=== PATIENT | female | born 1995 | race Caucasian/White ===

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

== ENCOUNTER 2017-01-29 13:45 | Emergency (ER) | payer MEDICAID ==
--- NOTE | 2017-01-29 14:08 | ERPHSYRPT ---
- History of Present Illness Time Seen by Provider: 01/29/17 14:02 Historian: patient Exam Limitations: no limitations Patient Subjective Stated Complaint: "I have been getting this pain in my upper abdomen, it is a. cramping pain and it happens when I bend over or lift something. It takes my breath away." Triage Nursing Assessment: pt alert and oriented X 3, skin pwd pt ambulates without difficulty. able to speak in full sentences. Physician History: The patient is a 21-year-old female complaining of mild abdominal pain just above her belly button when she lifts something. This began yesterday. It was particularly pronounced when she lifted a bucket of ice above her head while at work at [employer] today. She almost dropped a bucket because of the pain. Her medical laboratory manager sent her home. Her last menstrual period was one month ago. Her past medical history is unremarkable. Timing/Duration: yesterday Activities at Onset: activity Quality: sharpness Abdominal Pain Onset Location: periumbilical Pain Radiation: no radiation Severity of Pain-Max: moderate Severity of Pain-Current: mild Modifying Factors: Improves With: movement Associated Symptoms: denies symptoms Previous symptoms: no prior history Allergies/Adverse Reactions: clarithromycin [From Biaxin] Allergy (Verified 01/29/17 13:57) Rash Home Medications: No Home Meds 1 ea UD 11/12/16 [History] Hx Tetanus, Diphtheria Vaccination/Date Given: Yes Hx Influenza Vaccination/Date Given: Yes Hx Pneumococcal Vaccination/Date Given: No Immunizations Up to Date: Yes - Review of Systems Constitutional: No Fever, No Chills Eyes: No Symptoms Ears, Nose, & Throat: No Symptoms Respiratory: No Cough, No Dyspnea Cardiac: No Chest Pain, No Edema, No Syncope Abdominal/Gastrointestinal: Abdominal Pain Genitourinary Symptoms: No Dysuria Musculoskeletal: No Back Pain, No Neck Pain Skin: No Rash Neurological: No Dizziness, No Focal Weakness, No Sensory Changes Psychological: No Symptoms Endocrine: No Symptoms Hematologic/Lymphatic: No Symptoms Immunological/Allergic: No Symptoms All Other Systems: Reviewed and Negative - Past Medical History Pertinent Past Medical History: No Neurological History: No Pertinent History ENT History: No Pertinent History Cardiac History: No Pertinent History Respiratory History: No Pertinent History Endocrine Medical History: No Pertinent History Musculoskeletal History: Fractures GI Medical History: No Pertinent History History: No Pertinent History Psycho-Social History: No Pertinent History Female Reproductive Disorders: Cervical Cancer Other Medical History: pre cancer cells in cervix - Past Surgical History Past Surgical History: Yes Gastrointestinal: Hernia Repair Musculoskeletal: Orthopedic Surgery Female Surgical History: Other Other Surgical History: cerclage x2, conization - Social History Smoking Status: Never smoker Exposure to second hand smoke: No Drug Use: none Patient Lives Alone: Yes - Female History Hx Last Menstrual Period: 12/30/2016 Hx Now: No - Nursing Vital Signs Nursing Vital Signs: Initial Vital Signs Temperature 98.7 F 01/29/17 13:50 Pulse Rate 92 H 01/29/17 13:50 Respiratory Rate 18 01/29/17 13:50 Blood Pressure 130/52 01/29/17 13:50 O2 Sat by Pulse Oximetry 94 L 01/29/17 13:50 Pain Scale Pain Intensity 4 - Physical Exam General Appearance: no apparent distress, alert Eye Exam: PERRL/EOMI, eyes nml inspection Ears, Nose, Throat Exam: normal ENT inspection, pharynx normal, moist mucous membranes Neck Exam: normal inspection, non-tender, supple, full range of motion Respiratory Exam: normal breath sounds, lungs clear, No respiratory distress Cardiovascular Exam: regular rate/rhythm, normal heart sounds Gastrointestinal/Abdomen Exam: tenderness (2 cm superior to umbilicus without obvious intestinal hernia), other (obese) Pelvic Exam: not done Rectal Exam: not done Back Exam: normal inspection, normal range of motion, No CVA tenderness, No vertebral tenderness Extremity Exam: normal inspection, normal range of motion, pelvis stable Neurologic Exam: alert, oriented x 3, cooperative, normal mood/affect, nml cerebellar function, sensation nml, No motor deficits Skin Exam: normal color, warm, dry SpO2 Interpretation: normal SpO2: 94 Oxygen Delivery: Room Air - Radiology Exams Abdomen X-ray Interpretation: Teleradiologist Report, Negative (per DR Rubin) Ordered Tests: Active Orders 24 hr Category Date Time Status OBSTR/ACUTE ABDOMEN SERIES Stat Exams 01/29/17 14:07 Completed - Progress Progress: unchanged Counseled pt/family regarding: diagnosis, rad results - Departure Time of Disposition: 15:25 Departure Disposition: Home Clinical Impression: Abdominal pain Condition: Stable Critical Care Time: No Additional Instructions: You have pain in the muscular wall of your abdomen. This could be an indication that you are having a slight tear in the muscles. Your x-ray of the abdomen was normal. Take Tylenol and ibuprofen as needed. Follow-up as needed.
--- NOTE | 2017-01-29 15:10 | XRAY ---
Exam: Acute obstructive series from 01/29/2017. Comparison: Two-view chest from 07/10/2016 and one view pelvis from 06/19/2016. Indication: Abdominal pain, primarily in umbilical area, no history of prior surgery. Findings: An upright PA chest film was obtained. In addition, 2 supine images and an upright image of the abdomen were obtained. The heart size and contour are normal. The radha and mediastinal structures appear intact. Inflation of the chest is a bit less than average. Prior focal airspace infiltrate at the lateral left lung base has resolved. Also, I believe there was some minimal patchy infiltrate or atelectasis at the medial right lung base on the exam of 07/10/2016 which is no longer seen as well. Currently, no air space infiltrates, vascular congestion, pneumothorax, or pleural fluid is seen. The bowel gas pattern appears nonspecific. A small amount of stool and aerated bowel overlie the ascending colon and hepatic flexure. Minimal aerated bowel is seen within the splenic flexure. There appears to be abundant fluid/secretions filling the stomach lumen with an air-fluid level coursing across the upper aspect of the gastric fundus. No free intraperitoneal air is seen. Incidentally, there is a probable calcified granuloma at the medial left lung base behind the heart on the upright image of the abdomen. No suspicious abdominal calcifications are seen. The bones appear unremarkable. 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 Impression: 1. Inspiratory effort is a bit less than average. No acute cardiopulmonary disease is seen. Prior mild patchy airspace disease at each lung base, left greater than right, on 07/10/2016 has resolved. 2. Nonspecific bowel gas pattern suggesting neither bowel obstruction or significant ileus. I do see abundant fluid/secretions within the gastric lumen. 3. No free intraperineal air is seen.
[2017-01-29 15:16] VITALS: BP 135/70; PULSE 88
[2017-01-29 15:28] VITALS: O2SAT 94
== END 2017-01-29 15:34 | disposition home or self-care (01) ==
LOC: ED 13:45
DX: R10.10 Upper abdominal pain, unspecified (principal)
CPT/HCPCS: 74022; 99281; 99283

== ENCOUNTER 2017-03-09 12:40 | Emergency (ER) | payer OTHER ==
[2017-03-09] MEDS ORDERED: Pepcid 20 MG PO ONE (13:21)
[2017-03-09] MEDS ORDERED: Protonix 40MG Tablet PO ONE (13:21)
[2017-03-09] MEDS ORDERED: Pepcid 20 MG ONE (13:28)
[2017-03-09] MEDS ORDERED: Protonix 40MG Tablet ONE (13:28)
--- NOTE | 2017-03-09 13:36 | ERPHSYRPT ---
- History of Present Illness Time Seen by Provider: 03/09/17 13:31 Historian: patient, family Exam Limitations: no limitations Physician History: 21-year-old female came to the emergency room with complaining of feels like fluttering of the heart, epigastric abdominal pain and right upper quadrant abdominal pain since yesterday. Patient states that all her symptoms started after she has been taking Adipex for weight loss. Timing/Duration: today Activities at Onset: none Quality: tightness Location: substernal, epigastric, abdomen Chest Pain Radiation: no radiation Severity of Pain-Max: mild Severity of Pain-Current: mild Modifying Factors: Improves With: nothing Associated Symptoms: palpitations, abdominal pain Prior Chest Pain/Cardiac Workup: no prior chest pain Aspirin Treatment Today: no aspirin today Allergies/Adverse Reactions: clarithromycin [From Biaxin] Allergy (Verified 01/29/17 13:57) Rash Home Medications: No Home Meds [No Home Meds] 1 ea [facility] 11/12/16 [History] Hx Tetanus, Diphtheria Vaccination/Date Given: Yes Hx Influenza Vaccination/Date Given: Yes Hx Pneumococcal Vaccination/Date Given: No - Review of Systems Constitutional: No Fever, No Chills Eyes: No Symptoms Ears, Nose, & Throat: No Symptoms Respiratory: No Cough, No Dyspnea Cardiac: Chest Pain, Palpitations, No Edema, No Syncope Abdominal/Gastrointestinal: Abdominal Pain, No Nausea, No Vomiting, No Diarrhea Genitourinary Symptoms: No Dysuria Musculoskeletal: No Back Pain, No Neck Pain Skin: No Rash Neurological: No Dizziness, No Focal Weakness, No Sensory Changes Psychological: No Symptoms Endocrine: No Symptoms All Other Systems: Reviewed and Negative - Past Medical History Pertinent Past Medical History: No Neurological History: No Pertinent History ENT History: No Pertinent History Cardiac History: No Pertinent History Respiratory History: No Pertinent History Endocrine Medical History: No Pertinent History Musculoskeletal History: Fractures GI Medical History: No Pertinent History History: No Pertinent History Psycho-Social History: No Pertinent History Female Reproductive Disorders: Cervical Cancer Other Medical History: cervical ca 4 years ago - Past Surgical History Past Surgical History: Yes Gastrointestinal: Hernia Repair Musculoskeletal: Orthopedic Surgery Female Surgical History: Other Other Surgical History: cervical ca - Social History Smoking Status: Never smoker Exposure to second hand smoke: No Drug Use: none Patient Lives Alone: Yes - Female History Hx Now: No - Nursing Vital Signs Nursing Vital Signs: Initial Vital Signs Temperature 98.6 F 03/09/17 12:44 Pulse Rate 86 03/09/17 12:44 Respiratory Rate 12 03/09/17 12:44 Blood Pressure 130/70 03/09/17 12:44 O2 Sat by Pulse Oximetry 98 03/09/17 12:44 Pain Scale Pain Intensity 6 - Physical Exam General Appearance: no apparent distress, alert Eye Exam: PERRL/EOMI, eyes nml inspection Ears, Nose, Throat Exam: normal ENT inspection, moist mucous membranes Neck Exam: normal inspection, non-tender, supple, full range of motion Respiratory Exam: normal breath sounds, lungs clear, No respiratory distress Cardiovascular Exam: regular rate/rhythm, normal heart sounds Gastrointestinal/Abdomen Exam: soft, No tenderness, No mass Back Exam: normal inspection, No CVA tenderness, No vertebral tenderness Extremity Exam: normal inspection, normal range of motion Neurologic Exam: alert, oriented x 3, cooperative, normal mood/affect, sensation nml, No motor deficits Skin Exam: normal color, warm, dry SpO2: 98 Oxygen Delivery: Room Air - Course Nursing assessment & vital signs reviewed: Yes EKG Interpreted by Me: Sinus Rhythm Ordered Tests: Medication Summary Discontinued Medications Generic Name Dose Route Start Last Admin Trade Name Freq PRN Reason Stop Dose Admin Famotidine 40 mg 03/09/17 13:21 03/09/17 13:29 Pepcid 20 Mg PO 03/09/17 13:22 40 mg STAT ONE Administration Pantoprazole Sodium 40 mg 03/09/17 13:21 03/09/17 13:30 Protonix 40mg Tablet PO 03/09/17 13:22 40 mg STAT ONE Administration - Progress Progress: improved Air Movement: good Blood Culture(s) Obtained: No Antibiotics given: No Counseled pt/family regarding: diagnosis, need for follow-up - Departure Time of Disposition: 13:36 Departure Disposition: Home Clinical Impression: Chest pain of uncertain etiology, Right upper quadrant abdominal pain of unknown etiology Condition: Stable Critical Care Time: No Referrals: CHUCK ABEL MD [Primary Care Provider] - Instructions: Atypical Chest Pain Additional Instructions: Please stop taking Adipex. Drink more water instead of caffeine-related products. Stay away from fatty foods. Please follow up with your primary care physician and consider getting gallbladder ultrasound. If your symptoms get worse, come back to the emergency room otherwise follow-up with your primary care physician in next 1-2 days. Prescriptions: Famotidine 20 mg [Pepcid 20 MG] 20 mg PO BID #30 tablet PANTOPRAZOLE 40 mg Tablet [Protonix 40MG Tablet] 40 mg PO DAILY #30 tab
[2017-03-09 13:49] VITALS: BP 109/58; PULSE 70; O2SAT 100
== END 2017-03-09 13:49 | disposition home or self-care (01) ==
LOC: ED 12:40
DX: R07.9 Chest pain, unspecified (principal); R10.11 Right upper quadrant pain
CPT/HCPCS: 93005; 99284; A9270-GY

== ENCOUNTER 2017-03-16 00:26 | Emergency (ER) | payer OTHER ==
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
[2017-03-16 01:16] LABS: BASOPHIL % 0.1 % (0.0-0.4); Eosinophil % 2.1 % (0.00-5.0); Granulocytes % 69.1 % (36.0-66.0); Lymphocytes % 23.2 % (24.0-44.0); Mean Cell Volume 79.7 fl (78-100); Mean Platelet Volume 10.2 fl (6-9.5); Monocytes % 5.5 % (0.0-12.0); Platelet Count 278 K/mm3 (150-450); Red Blood Count 4.49 M/mm3 (4.1-5.4); Red Cell Distribution Width 15.4 % (11.5-14.0)
[2017-03-16 01:18] LABS: Mean Corpuscular Hemoglobin 25.1 pg (26-32)
[2017-03-16 01:36] LABS: Bacteria MODERATE /HPF (NEGATIVE); Bilirubin NEGATIVE (NEGATIVE); Blood NEGATIVE Ery/ul (0-5); COMPLETE URINE MICROSCOPIC? YES; Collection Type VOID; Epithelial Cells MODERATE /HPF (FEW); Glucose NEGATIVE (NEGATIVE); Leukocyte Esterase 2+ (NEGATIVE); Mucus MODERATE /HPF (NEGATIVE); WBC 15-25 /HPF (0-5)
[2017-03-16 01:37] LABS: ADD URINE CULTURE? YES (NO)
[2017-03-16 01:39] LABS: ALBUMIN 3.3 g/dL (3.4-5.0); ALKALINE PHOSPHATASE 48 U/L (46-116); ANION GAP 12.5 MEQ/L (5-15); BLOOD UREA NITROGEN 10 mg/dL (9-20); CHLORIDE 109 mEq/L (98-107); Carbon Dioxide 25.6 mEq/L (21-32); Glucose 104 MG/DL (70-110); LIPASE 105 U/L (73-393); Potassium 3.6 mEq/L (3.5-5.1); SGOT/AST 28 U/L (15-37); SGPT/ALT 34 U/L (12-78); SODIUM 144 mEq/L (136-145); Total Protein 7.4 gm/dL (6.4-8.2)
[2017-03-16] MEDS ORDERED: BACTRIM DS TABLET PO ONE ×2 (02:16→02:22)
[2017-03-16 03:14] VITALS: BP 134/81; PULSE 76; O2SAT 99
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
== END 2017-03-16 03:14 | disposition home or self-care (01) ==
LOC: ED 00:26
DX: S00.93XA Contusion of unspecified part of head, initial encounter (principal); S40.812A Abrasion of left upper arm, initial encounter; S70.311A Abrasion, right thigh, initial encounter; S80.811A Abrasion, right lower leg, initial encounter; S40.022A Contusion of left upper arm, initial encounter; S70.12XA Contusion of left thigh, initial encounter; N39.0 Urinary tract infection, site not specified; Y04.0XXA Assault by unarmed brawl or fight, initial encounter
CPT/HCPCS: 36415; 70450; 72125; 73030; 73060; 73552; 73590; 80053; 80307; 81000; 82150; 83690; 83735; 84703; 85025; 87086; 99284; A9270-GY

== ENCOUNTER 2017-03-26 21:23 | Emergency (ER) | payer OTHER ==
[2017-03-26 21:48] VITALS: PULSE 83
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
[2017-03-26 22:37] LABS: BASOPHIL % 0.2 % (0.0-0.4); Eosinophil % 3.2 % (0.00-5.0); Granulocytes % 55.4 % (36.0-66.0); Lymphocytes % 33.6 % (24.0-44.0); Mean Cell Volume 79.6 fl (78-100); Mean Platelet Volume 9.7 fl (6-9.5); Monocytes % 7.6 % (0.0-12.0); Platelet Count 317 K/mm3 (150-450); Red Blood Count 4.61 M/mm3 (4.1-5.4); Red Cell Distribution Width 15.6 % (11.5-14.0); White Blood Count 5.6 K/mm3 (4.0-10.5)
[2017-03-26 22:38] LABS: Mean Corpuscular Hemoglobin 25.3 pg (26-32)
[2017-03-26 23:12] LABS: Bilirubin NEGATIVE (NEGATIVE); Blood 50 Ery/ul (0-5); Collection Type CLEAN CATCH; Glucose NEGATIVE (NEGATIVE); Leukocyte Esterase NEGATIVE (NEGATIVE)
[2017-03-26 23:13] LABS: ADD URINE CULTURE? NO (NO); COMPLETE URINE MICROSCOPIC? YES; Epithelial Cells FEW /HPF (FEW); Mucus SLIGHT /HPF (NEGATIVE)
[2017-03-27 00:03] LABS: Bacteria Moderate; Clue Cells None Seen; Trichomonas None Seen; Yeast None Seen
[2017-03-27 00:22] VITALS: BP 103/70
[2017-03-27] MEDS ORDERED: ROCEPHIN 250 MG INJ IM ONE (00:37)
[2017-03-27 00:43] VITALS: O2SAT 98
[2017-03-27] MEDS ORDERED: TORAdol 30 mg Injection IM ONE (00:43)
[2017-03-27] MEDS ORDERED: Rocephin 500 MG INJ ONE (00:45)
[2017-03-27] MEDS ORDERED: TORAdol 30 mg Injection ONE (00:45)
[2017-03-27 01:25] LABS: CHLAMYDIA DNA POSITIVE
== END 2017-03-27 01:10 | disposition home or self-care (01) ==
LOC: ED 21:23
DX: N73.9 Female pelvic inflammatory disease, unspecified (principal); V59.88 Occupant (driver) (passenger) of pick-up truck or van injured in other specified transport accidents; R10.9 Unspecified abdominal pain
CPT/HCPCS: 36415; 81000; 84703; 85025; 87210; 87490; 87590; 96372; 99284; J0696; J1885

== ENCOUNTER 2017-05-18 12:51 | Observation (INO) | payer OTHER ==
[2017-05-18] MEDS ORDERED: Sodium Chloride 0.9% 1000 ML 1,000 ML IV STA (12:54)
--- NOTE | 2017-05-18 12:59 | ERPHSYRPT ---
- History of Present Illness Time Seen by Provider: 05/18/17 12:56 Source: patient, EMS Exam Limitations: no limitations Physician History: pt took a handful of unknown pills at 1am in a suicide attempt, then later had emesis, no loc, no pain, pt flat affect, answers questions appropriately Timing/Duration: today Suicidal thoughts: attempt Associated Symptoms: depressed, No hostile, No hallucinating Allergies/Adverse Reactions: clarithromycin [From Biaxin] Allergy (Verified 04/23/17 08:55) Rash Hx Tetanus, Diphtheria Vaccination/Date Given: Yes Hx Influenza Vaccination/Date Given: Yes Hx Pneumococcal Vaccination/Date Given: No - Past Medical History Pertinent Past Medical History: Yes Neurological History: No Pertinent History ENT History: No Pertinent History Cardiac History: No Pertinent History Respiratory History: No Pertinent History Endocrine Medical History: No Pertinent History Musculoskeletal History: Fractures GI Medical History: No Pertinent History History: No Pertinent History Psycho-Social History: No Pertinent History Female Reproductive Disorders: Cervical Cancer Other Medical History: cervical ca 4 years ago - Past Surgical History Past Surgical History: Yes Gastrointestinal: Cholecystectomy, Hernia Repair Musculoskeletal: Orthopedic Surgery Female Surgical History: Other Other Surgical History: cervical ca , gallbladder remvoed apr 15 - Social History Smoking Status: Never smoker Exposure to second hand smoke: Yes Drug Use: none Patient Lives Alone: No - Review of Systems Constitutional: No Fever Eyes: No Symptoms Ears, Nose, & Throat: No Symptoms Respiratory: No Symptoms Cardiac: No Symptoms Abdominal/Gastrointestinal: Vomiting Musculoskeletal: No Symptoms Skin: No Symptoms Neurological: No Dizziness Psychological: Depression, Suicidal Ideations - Nursing Vital Signs Nursing Vital Signs: Initial Vital Signs Temperature 97.6 F 05/18/17 12:52 Pulse Rate 116 H 05/18/17 12:52 Respiratory Rate 14 05/18/17 12:52 Blood Pressure 130/70 05/18/17 12:52 O2 Sat by Pulse Oximetry 98 05/18/17 12:52 Pain Scale Pain Intensity 0 - Physical Exam General Appearance: no apparent distress Eyes, Ears, Nose, Throat Exam: normal ENT inspection Neck Exam: normal inspection Respiratory Exam: normal breath sounds Cardiovascular Exam: regular rate/rhythm Gastrointestinal/Abdominal Exam: soft, No distention, No rebound Neurological Exam: oriented x 3 Behavior/Eye Contact/Speech: alert & cooperative, good eye contact Thoughts/Hallucinations: no apparent hallucination Skin Exam: normal color, warm, dry - Course Nursing assessment & vital signs reviewed: Yes EKG Interpreted by Me: Other (nsr 93, normal QTc) - CT Exams Head CT Interpretation: Negative, Discussed w/radiologist Ordered Tests: Active Orders 24 hr Category Date Time Status Bedrest ROUTINE Activity 05/18/17 14:54 Active Admission/Status Order ROUTINE Care 05/18/17 14:52 Active Call Admit Doctor for Orders ON ADMISSION Care 05/18/17 14:53 Active Elastic Attacher Chainstitch STAT Care 05/18/17 12:55 Active Code Status Order ROUTINE Care 05/18/17 14:52 Active EKG-ER Only STAT Care 05/18/17 12:54 Active IV Care Q6H Care 05/18/17 14:52 Active cath [Cath for Specimen-Straight] STAT Care 05/18/17 13:41 Active NPO Diet 05/18/17 14:54 Active HEAD WITHOUT CONTRAST [CT] Stat Exams 05/18/17 12:54 Taken ACETAMINOPHEN Stat Lab 05/18/17 12:45 Completed CBC W DIFF Stat Lab 05/18/17 12:45 Completed CMP Stat Lab 05/18/17 12:45 Completed ETHYL ALCOHOL Stat Lab 05/18/17 12:45 Completed HCG QUALITATIVE,SERUM Stat Lab 05/18/17 12:45 Completed SALICYLATE Stat Lab 05/18/17 12:45 Completed UA W/ MICROSCOPIC Stat Lab 05/18/17 13:30 Completed Urine Triage Profile Stat Lab 05/18/17 13:30 Completed Pulse Oximetry CONTINUOUS RT 05/18/17 14:54 Active Medication Summary Generic Name Dose Route Start Last Admin Trade Name Freq PRN Reason Stop Dose Admin Sodium Chloride 1,000 mls @ 100 mls/hr 05/18/17 15:00 Sodium Chloride 0.9% 1000 Ml IV 06/17/17 14:59 .Q10H CHRISTOPHE Discontinued Medications Generic Name Dose Route Start Last Admin Trade Name Freq PRN Reason Stop Dose Admin Sodium Chloride 1,000 mls @ 999 mls/hr 05/18/17 12:54 05/18/17 13:19 Sodium Chloride 0.9% 1000 Ml IV 05/18/17 13:54 999 mls/hr .Q1H1M STA Administration Sodium Chloride Confirm 05/18/17 13:18 Sodium Chloride 0.9% 1000 Ml Administered 05/18/17 13:19 Dose 1,000 mls @ ud .ROUTE .STK-MED ONE Lab/Rad Data: Laboratory Result Diagrams 05/18/17 12:45 05/18/17 12:45 Laboratory Results 05/18/17 05/18/17 05/18/17 Range/Units 13:30 13:30 12:45 WBC (4.0-10.5) K/mm3 RBC (4.1-5.4) M/mm3 Hgb (12.0-16.0) gm/dl Hct (35-47) % MCV (78-100) fl MCH (26-32) pg MCHC (32-36) g/dl RDW (11.5-14.0) % Plt Count (150-450) K/mm3 MPV (6-9.5) fl Gran % (36.0-66.0) % Lymphocytes % (24.0-44.0) % Monocytes % (0.0-12.0) % Eosinophils % (0.00-5.0) % Basophils % (0.0-0.4) % Basophils # (0-0.4) Sodium (136-145) mEq/L Potassium (3.5-5.1) mEq/L Chloride (98-107) mEq/L Carbon Dioxide (21-32) mEq/L Anion Gap (5-15) MEQ/L BUN (9-20) mg/dL Creatinine (0.55-1.30) mg/dl Estimated GFR ML/MIN Glucose (70-110) MG/DL Calcium (8.5-10.1) mg/dL Total Bilirubin (0.2-1.0) mg/dL AST (15-37) U/L ALT (12-78) U/L Alkaline Phosphatase (46-116) U/L Serum Total Protein (6.4-8.2) gm/dL Albumin (3.4-5.0) g/dL Serum , Qual NEGATIVE (Negative) Ur Collection Type CATH Urine Color YELLOW (YELLOW) Urine Appearance CLEAR (CLEAR) Urine pH 5.0 (5-6) Ur Specific [place] 1.020 (1.005-1.025) Urine Protein NEGATIVE (Negative) Urine Ketones NEGATIVE (NEGATIVE) Urine Blood 250 (0-5) Kody/ul Urine Nitrite NEGATIVE (NEGATIVE) Urine Bilirubin NEGATIVE (NEGATIVE) Urine Urobilinogen NORMAL (0-1) mg/dL Ur Leukocyte Esterase NEGATIVE (NEGATIVE) Urine Microscopic RBC 0-2 (0-2) /HPF Ur Epithelial Cells MANY (FEW) /HPF Urine Culture Reflexed NO (NO) Urine Glucose NEGATIVE (NEGATIVE) mg/dL Salicylates (2.8-20.0) mg/dl Urine Opiates Level NEG. (NEGATIVE) Ur Methadone NEG. (NEGATIVE) Acetaminophen (10-30) ug/ml Urine Barbiturates NEG. (NEGATIVE) Ur Phencyclidine (PCP) NEG. (NEGATIVE) Urine Amphetamine NEG. (NEGATIVE) U Benzodiazepine Level POS. (NEGATIVE) Urine Cocaine NEG. (NEGATIVE) Urine Marijuana (THC) POS. (NEGATIVE) Ethyl Alcohol (0.00-0.01) % Specimen Received 05/18/17 1330 05/18/17 05/18/17 Range/Units 12:45 12:45 WBC 9.9 (4.0-10.5) K/mm3 RBC 5.01 (4.1-5.4) M/mm3 Hgb 12.9 (12.0-16.0) gm/dl Hct 39.9 (35-47) % MCV 79.6 (78-100) fl MCH 25.7 L (26-32) pg MCHC 32.3 (32-36) g/dl RDW 16.4 H (11.5-14.0) % Plt Count 293 (150-450) K/mm3 MPV 10.3 H (6-9.5) fl Gran % 75.7 H (36.0-66.0) % Lymphocytes % 12.5 L (24.0-44.0) % Monocytes % 5.6 (0.0-12.0) % Eosinophils % 6.1 H (0.00-5.0) % Basophils % 0.1 (0.0-0.4) % Basophils # 0.01 (0-0.4) Sodium 142 (136-145) mEq/L Potassium 3.8 (3.5-5.1) mEq/L Chloride 106 (98-107) mEq/L Carbon Dioxide 22.9 (21-32) mEq/L Anion Gap 17.0 H (5-15) MEQ/L BUN 11 (9-20) mg/dL Creatinine 0.75 (0.55-1.30) mg/dl Estimated GFR > 60 ML/MIN Glucose 99 (70-110) MG/DL Calcium 9.3 (8.5-10.1) mg/dL Total Bilirubin 0.40 (0.2-1.0) mg/dL AST 34 (15-37) U/L ALT 45 (12-78) U/L Alkaline Phosphatase 52 (46-116) U/L Serum Total Protein 8.8 H (6.4-8.2) gm/dL Albumin 3.8 (3.4-5.0) g/dL Serum , Qual (Negative) Ur Collection Type Urine Color (YELLOW) Urine Appearance (CLEAR) Urine pH (5-6) Ur Specific [place] (1.005-1.025) Urine Protein (Negative) Urine Ketones (NEGATIVE) Urine Blood (0-5) Kody/ul Urine Nitrite (NEGATIVE) Urine Bilirubin (NEGATIVE) Urine Urobilinogen (0-1) mg/dL Ur Leukocyte Esterase (NEGATIVE) Urine Microscopic RBC (0-2) /HPF Ur Epithelial Cells (FEW) /HPF Urine Culture Reflexed (NO) Urine Glucose (NEGATIVE) mg/dL Salicylates < 2.8 L (2.8-20.0) mg/dl Urine Opiates Level (NEGATIVE) Ur Methadone (NEGATIVE) Acetaminophen < 2.0 L (10-30) ug/ml Urine Barbiturates (NEGATIVE) Ur Phencyclidine (PCP) (NEGATIVE) Urine Amphetamine (NEGATIVE) U Benzodiazepine Level (NEGATIVE) Urine Cocaine (NEGATIVE) Urine Marijuana (THC) (NEGATIVE) Ethyl Alcohol < 0.010 (0.00-0.01) % Specimen Received - Progress Progress: improved Progress Note: 05/18/17 14:58 admit d/w Dr Staton covering for Dr Abel Discussed with : Shemar Will see patient in: hospital (observation) Counseled pt/family regarding: drug and/or alcohol abuse, lab results, diagnosis , rad results - Departure Time of Disposition: 14:57 Departure Disposition: Observation Clinical Impression: Overdose Qualifiers: Encounter type: initial encounter Injury intent: intentional self-harm Qualified Code(s): T50.902A - Poisoning by unspecified drugs, medicaments and biological substances, intentional self-harm, initial encounter Condition: Stable Critical Care Time: No Referrals: CHUCK ABEL MD [Primary Care Provider] -
[2017-05-18 13:11] LABS: BASOPHIL % 0.1 % (0.0-0.4); Eosinophil % 6.1 % (0.00-5.0); Granulocytes % 75.7 % (36.0-66.0); Lymphocytes % 12.5 % (24.0-44.0); Mean Cell Volume 79.6 fl (78-100); Mean Corpuscular Hemoglobin 25.7 pg (26-32); Mean Platelet Volume 10.3 fl (6-9.5); Monocytes % 5.6 % (0.0-12.0); Platelet Count 293 K/mm3 (150-450); Red Blood Count 5.01 M/mm3 (4.1-5.4); Red Cell Distribution Width 16.4 % (11.5-14.0); White Blood Count 9.9 K/mm3 (4.0-10.5)
[2017-05-18] MEDS ORDERED: Sodium Chloride 0.9% 1000 ML 1,000 ML ONE (13:18)
[2017-05-18 13:27] LABS: ALBUMIN 3.8 g/dL (3.4-5.0); ALKALINE PHOSPHATASE 52 U/L (46-116); BLOOD UREA NITROGEN 11 mg/dL (9-20); CHLORIDE 106 mEq/L (98-107); Carbon Dioxide 22.9 mEq/L (21-32); ETHYL ALCOHOL < 0.010 % (0.00-0.01); Glucose 99 MG/DL (70-110); Potassium 3.8 mEq/L (3.5-5.1); SGOT/AST 34 U/L (15-37); SGPT/ALT 45 U/L (12-78); SODIUM 142 mEq/L (136-145); Total Protein 8.8 gm/dL (6.4-8.2)
[2017-05-18 13:28] LABS: ACETAMINOPHEN < 2.0 ug/ml (10-30)
[2017-05-18 13:35] LABS: Bilirubin NEGATIVE (NEGATIVE); Blood 250 Ery/ul (0-5); COMPLETE URINE MICROSCOPIC? YES; Collection Type CATH; Glucose NEGATIVE (NEGATIVE); Leukocyte Esterase NEGATIVE (NEGATIVE)
[2017-05-18 13:55] LABS: Epithelial Cells MANY /HPF (FEW)
[2017-05-18 13:56] LABS: ADD URINE CULTURE? NO (NO)
[2017-05-18] MEDS: Sodium Chloride 0.9% 1000 ML 1,000 ML IV SCH (15:04)
--- NOTE | 2017-05-18 22:07 | XRAY ---
Indication: Overdose. Multiple contiguous axial images obtained through the head without contrast. Comparison: March 16, 2017. Again normal appearing brain parenchyma, ventricles, and bony calvarium. Visualized paranasal sinuses and mastoid air cells essentially clear. Comment: Preliminary interpretation was made by [facility]. No discrepancy. CTDI 70.21
[2017-05-19] MEDS: Sodium Chloride 0.9% 1000 ML 1,000 ML IV SCH ×2 (01:15→11:15)
[2017-05-19 05:51] LABS: ANION GAP 12.6 MEQ/L (5-15); BLOOD UREA NITROGEN 8 mg/dL (9-20); CHLORIDE 113 mEq/L (98-107); Carbon Dioxide 22.3 mEq/L (21-32); Glucose 92 MG/DL (70-110); Potassium 3.4 mEq/L (3.5-5.1); SODIUM 145 mEq/L (136-145)
--- NOTE | 2017-05-19 08:03 | PCM.NOTE ---
Date and Time: 05/19/17 0800 Subjective Assessment: patient denies pain, denies suicidal or homicidal ideations. tolerating po, feels swollen in the hands otherwise no other complaints Objective Exam General Appearance: no apparent distress, alert Respiratory Exam: normal breath sounds, lungs clear, No respiratory distress Cardiovascular Exam: regular rate/rhythm, normal heart sounds Gastrointestinal/Abdomen Exam: soft, No tenderness, No mass Extremity Exam: swelling OBJECTIVE DATA Vital Signs: Vital Signs - 24 hr Temp Pulse Resp BP Pulse Ox 05/19/17 04:00 97.8 F 103 H 15 112/58 96 05/19/17 00:01 108 H 05/19/17 00:00 97.9 F 108 H 15 119/74 98 05/18/17 20:00 97.7 F 102 H 14 119/63 100 05/18/17 19:53 107 H 05/18/17 16:12 97.6 F 91 H 13 124/86 100 05/18/17 14:54 100 05/18/17 14:50 94 H 14 113/87 100 05/18/17 14:40 90 16 113/87 99 05/18/17 13:50 103 H 05/18/17 13:42 90 16 111/75 100 05/18/17 12:52 97.6 F 116 H 14 130/70 98 Intake and Output: Intake & Output 05/16/17 05/17/17 05/18/17 05/19/17 11:59 11:59 11:59 11:59 Intake Total 1436 Output Total 100 Balance 1336 Weight 96.4 kg Lab Results: Lab Results-Last 24 Hours 05/18/17 05/18/17 05/19/17 Range/Units 23:50 23:50 05:20 Sodium 145 (136-145) mEq/L Potassium 3.4 L (3.5-5.1) mEq/L Chloride 113 H (98-107) mEq/L Carbon Dioxide 22.3 (21-32) mEq/L Anion Gap 12.6 (5-15) MEQ/L BUN 8 L (9-20) mg/dL Creatinine 0.66 (0.55-1.30) mg/dl Estimated GFR > 60 ML/MIN Glucose 92 (70-110) MG/DL Calcium 8.0 L (8.5-10.1) mg/dL Creatine Kinase 42 (26-192) U/L Acetaminophen < 2.0 L (10-30) ug/ml Assessment/Plan (1) Overdose Current Visit: Yes Status: Acute Qualifiers: Encounter type: initial encounter Injury intent: intentional self-harm Qualified Code(s): T50.902A - Poisoning by unspecified drugs, medicaments and biological substances, intentional self-harm, initial encounter Assessment & Plan: unknown substance, possibly flexeril but patient claims she can't remember any details or any events. does not remember feeling depressed or suicidal Code(s): T50.901A - POISONING BY UNSP DRUG/MEDS/BIOL SUBST, ACCIDENTAL, INIT
[2017-05-19 09:20] VITALS: O2SAT 98
[2017-05-19 11:30] VITALS: BP 122/80; PULSE 104
--- NOTE | 2017-05-19 13:55 | HP ---
HISTORY OF PRESENT ILLNESS: This is a 22 year-old patient of Dr. Oreilly who was brought into the emergency department by ambulance. Her mother is at the bedside and give her history. The patient is arousable is not talking a whole lot. Her mom said that she did not come to work today and work called to check on her. The patient lives with her father and he had friends check on her and they found her in her home and called the ambulance and she was brought here. She reported to the emergency room doctor that she took a handful of unknown pills. Her mother went to her house and they brought pills that were on the floor that were identified as Flexeril and one that could not be identified. The mother states she has never had a history of suicidal ideation or attempts in the past. She reports she has two children that live at home with her 2 1/2 year old and a 1 year-old but they were not home when this happened. Her mom states that she has been more sad since her and the children's father and her broke up last [place] but besides this has not had any history of depression or anxiety. Her mom reports that her face, hands and feet seem more swollen than normal. The nurses report she was cathed in the emergency room but has not had any urine output since then. She does not have a Saavedra catheter in place at this time. REVIEW OF SYSTEMS: Unobtainable due to the patient's altered mental status. The patient denies fever or any pain by nodding her head when I asked those questions. PAST MEDICAL HISTORY: She has been healthy. PAST SURGICAL HISTORY: Cholecystectomy, tonsillectomy, hernia surgery when she was [age] months old, ankle surgery after fracture. MEDICATIONS: None. ALLERGIES: CLARITHROMYCIN. SOCIAL HISTORY: She lives with her father and his , brother, step-brother and sister and her two children who are 2 1/2 and 1 year of age. Her mother reports she rarely uses tobacco and she is unsure about alcohol use. FAMILY HISTORY: Noncontributory. PHYSICAL EXAMINATION: VITAL SIGNS: Temperature current 97.7F, temperature max 97.7F, heart rate 90 to 116 currently 102, respiratory rate 13 to 16, blood pressure 111 to 130 over 63 to 86. Oxygen saturation 98 to 100% on room air. GENERAL: The patient is lying in bed. She will squeeze my hand and nod Yes and No to questions. She tells me she does not remember what happened today. CVS: She has a regular rate and rhythm. No murmurs, gallops or rubs are appreciated. CHEST: Clear to auscultation bilaterally. No crackles or wheezes. ABDOMEN: Soft, with mild suprapubic tenderness. She is currently on her period and had a tampon removed in the emergency room. No guarding. No rigidity. Normal bowel sounds. EXTREMITIES: Mild edema. She has +2 radial and dorsalis pedis pulse. No clubbing or cyanosis. No rash. She has a tattoo on her left anterior chest. LABORATORY DATA AND TESTS: CMP revealed protein 8.8. CBC within normal limits. UA negative. Urine tox positive for benzodiazepine and marijuana. Head CT was read as normal appearing brain parenchyma. Please see the radiologist report for the full dictation. EKG normal sinus rhythm with no ST or T wave changes, normal QT interval. ASSESSMENT AND PLAN: 1) ALTERED MENTAL STATUS: Most likely due to medications that she took at home. Will continue to monitor closely here in the ICU. Recheck acetaminophen level and also check CPK. 2) SUICIDAL IDEATION: Once she is more awake and able to converse she will need a [facility] consult.
--- NOTE | 2017-05-19 14:19 | PCM.DS ---
Discharge Summary Date of Admission: 05/18/17 15:36 Admitting Physician: CHUCK ABEL Primary Care Provider: CHUCK ABEL Allergies Allergies clarithromycin [From Biaxin] Allergy (Verified 04/23/17 08:55) Rash Hospital Summary - Hospital Course Hospital Course: patient was admitted with unknown overdose, cannot recall any events prior to admission and denies suicidal ideation. was seen by [facility] and [place] for [place]. had no complaints on date of discharge. - Vitals & Intake/Output Vital Signs: Vital Signs Temperature 97.8 F 05/19/17 11:29 Pulse Rate 104 H 05/19/17 11:29 Respiratory Rate 05/19/17 11:29 Blood Pressure 122/80 05/19/17 11:29 O2 Sat by Pulse Oximetry 98 05/19/17 11:29 Intake & Output: Intake & Output 05/17/17 05/18/17 05/19/17 05/20/17 11:59 11:59 11:59 11:59 Intake Total 1436 Output Total 100 Balance 1336 Weight 96.4 kg - Lab Result Diagrams: 05/18/17 12:45 05/19/17 05:20 Lab Results-Last 24 Hrs: Lab Results-Last 24 Hours 05/18/17 05/18/17 05/19/17 Range/Units 23:50 23:50 05:20 Sodium 145 (136-145) mEq/L Potassium 3.4 L (3.5-5.1) mEq/L Chloride 113 H (98-107) mEq/L Carbon Dioxide 22.3 (21-32) mEq/L Anion Gap 12.6 (5-15) MEQ/L BUN 8 L (9-20) mg/dL Creatinine 0.66 (0.55-1.30) mg/dl Estimated GFR > 60 ML/MIN Glucose 92 (70-110) MG/DL Calcium 8.0 L (8.5-10.1) mg/dL Creatine Kinase 42 (26-192) U/L Acetaminophen < 2.0 L (10-30) ug/ml Discharge Exam General Appearance: no apparent distress, alert Skin Exam: normal color, warm, dry Respiratory Exam: normal breath sounds, lungs clear, No respiratory distress Cardiovascular Exam: regular rate/rhythm, normal heart sounds Gastrointestinal/Abdomen Exam: soft, No tenderness, No mass Extremity Exam: normal inspection, normal range of motion Final Diagnosis/Problem List - Final Discharge Diagnosis/Problem (1) Overdose Current Visit: Yes Status: Acute - Discharge Disposition: Home, Self-Care Condition: Stable Prescriptions: No Action No Reportable Medications [No Reported Medications] Follow up with: CHUCK ABEL MD [Primary Care Provider] -
== END 2017-05-19 14:50 | disposition home or self-care (01) ==
LOC: ED 12:51 → ICU 15:36
PROVIDERS: ADMIT Family Medicine; ATTEND Family Medicine
DX: T50.902A Poisoning by unspecified drugs, medicaments and biological substances, intentional self-harm, initial encounter (principal); R41.82 Altered mental status, unspecified; R45.851 Suicidal ideations
CPT/HCPCS: 36415; 70450; 80048; 80053; 80307; 81000; 82550; 84703; 85025; 87086; 90791; 93005; 93041; 93268; 96360; 96361; 99285; G0378; G0481; P9612; Q3014

== ENCOUNTER 2017-06-03 20:08 | Emergency (ER) | payer OTHER ==
--- NOTE | 2017-06-03 20:41 | ERPHSYRPT ---
- History of Present Illness Time Seen by Provider: 06/03/17 20:38 Source: patient Exam Limitations: no limitations Physician History: Pt states, she fell off the porch, landed on her right foot, twisting it, became painful. She denies other injury or complaints. Occurred: just prior to arrival Reason for Fall: tripped Injuries/Pain Location: lower extremity Loss of Consciousness: no loss of consciousness Quality: throbbing Severity of Pain-Max: moderate Severity of Pain-Current: moderate Modifying Factors: Improves With: immobilization Associated Symptoms (Fall): denies symptoms Allergies/Adverse Reactions: clarithromycin [From Biaxin] Allergy (Verified 06/03/17 20:43) Rash Home Medications: No Reportable Medications [No Reported Medications] 05/18/17 [History] Hx Tetanus, Diphtheria Vaccination/Date Given: Yes Hx Influenza Vaccination/Date Given: Yes Hx Pneumococcal Vaccination/Date Given: No - Review of Systems Constitutional: No Symptoms Musculoskeletal: Other (right foot painful) All Other Systems: Reviewed and Negative - Past Medical History Pertinent Past Medical History: Yes Neurological History: No Pertinent History ENT History: No Pertinent History Cardiac History: No Pertinent History Respiratory History: No Pertinent History Endocrine Medical History: No Pertinent History Musculoskeletal History: Fractures GI Medical History: No Pertinent History History: No Pertinent History Psycho-Social History: No Pertinent History Female Reproductive Disorders: Cervical Cancer Other Medical History: cervical ca 4 years ago - Past Surgical History Past Surgical History: Yes Gastrointestinal: Cholecystectomy, Hernia Repair Musculoskeletal: Orthopedic Surgery Female Surgical History: Other Other Surgical History: cervical ca , gallbladder remvoed apr 15 - Social History Smoking Status: Current every day smoker Exposure to second hand smoke: Yes Drug Use: none Patient Lives Alone: No - Nursing Vital Signs Nursing Vital Signs: Initial Vital Signs Pulse Rate 86 06/03/17 20:37 Respiratory Rate 16 06/03/17 20:37 Blood Pressure 131/74 06/03/17 20:37 O2 Sat by Pulse Oximetry 97 06/03/17 20:37 Pain Scale Pain Intensity 5 - Cavour Coma Score Best Eye Response (Milena): (4) open spontaneously Best Verbal Response (Cavour): (5) oriented Best Motor Response (Milena): (6) obeys commands Milena Total: 15 - Physical Exam General Appearance: no apparent distress Head Injury: no evidence of injury ENT Exam: airway nml Neck Exam: supple, full range of motion Respiratory/Chest Exam: normal breath sounds, No chest tenderness Cardiovascular Exam: normal heart sounds, regular rate/rhythm, normal peripheral pulses, No murmur, No edema Gastrointestinal Exam: soft, No tenderness Back Exam: normal inspection, No CVA tenderness Extremity Exam: normal inspection, normal range of motion, other (right lateral ankle and foot slightly swollen, tender, no bruise or deformity.) Peripheral Pulses: dorsalis-pedis (R): 4+, dorsalis-pedis (L): 4+ Neurologic Exam: alert, oriented x 3, cooperative, normal mood/affect Skin Exam: normal color, warm, dry SpO2 Interpretation: normal - Radiology Exams Ankle X-ray Interpretation: Interpreted by me, Negative Foot X-ray Interpretation: Interpreted by me, Negative Ordered Tests: Active Orders 24 hr Category Date Time Status ANKLE (3 VIEWS) Stat Exams 06/03/17 21:15 Taken FOOT (MINIMUM 3 VIEWS) Stat Exams 06/03/17 21:15 Taken - Progress Progress: unchanged Progress Note: 06/03/17 21:37 Pt has been comfortable, no sign of severe pain or distress. - Departure Time of Disposition: 21:45 Departure Disposition: Home Clinical Impression: Ankle sprain Qualifiers: Encounter type: initial encounter Involved ligament of ankle: unspecified ligament Laterality: right Qualified Code(s): S93.401A - Sprain of unspecified ligament of right ankle, initial encounter Condition: Stable Critical Care Time: No Referrals: CHUCK ABEL MD [Primary Care Provider] - Instructions: Ankle Sprain Additional Instructions: Rest x 1-2 days with elevated leg, apply ice or cold compresses to swelling, return if severe pain, swelling, discoloration of the toes!
[2017-06-03 21:42] VITALS: BP 124/65; PULSE 80; O2SAT 99
--- NOTE | 2017-06-04 09:14 | XRAY ---
Indication: Pain following fall/twisting injury. Comparison: October 01, 2012. 3 views of the right ankle demonstrates mild lateral soft tissue swelling. No other bony, articular, or soft tissue abnormalities.
--- NOTE | 2017-06-04 09:14 | XRAY ---
Indication: Pain following fall/twisting injury. Comparison: None 3 nonweightbearing views of the right foot obtained. No bony, articular, or soft tissue abnormalities.
== END 2017-06-03 21:48 | disposition home or self-care (01) ==
LOC: ED 20:08
DX: S93.401A Sprain of unspecified ligament of right ankle, initial encounter (principal); W17.89XA Other fall from one level to another, initial encounter; X50.0XXA Overexertion from strenuous movement or load, initial encounter
CPT/HCPCS: 73610; 73630; 99283

== ENCOUNTER 2017-07-08 15:03 | Emergency (ER) | payer OTHER ==
[2017-07-08 15:28] VITALS: O2SAT 100
--- NOTE | 2017-07-08 15:43 | ERPHSYRPT ---
- History of Present Illness Time Seen by Provider: 07/08/17 15:26 Source: patient Patient Subjective Stated Complaint: pt states she began having lower abdominal cramping at 0300 this morning with vaginal discharge. Triage Nursing Assessment: pt pink, warm, dry. abdomen soft nontender. bowel sounds present in all 4 qauds. pt aFEBRILE. DENIESA [place] DYSURIA. Physician History: CC: lower abd cramping Hx: 22 y/o with LMP Jun 21. She awoke with wet discharge and thought she urinated on herself. Thru the day at work she had wet pants and copious green yellow discharge. No fever or chills. She has intermittent lower abdominal cramps similar to labor pains. No vomiting. Timing/Duration: today Sexual intercourse history: single partner (last intercourse in May) Allergies/Adverse Reactions: clarithromycin [From Biaxin] Allergy (Verified 07/08/17 15:28) Rash Hx Tetanus, Diphtheria Vaccination/Date Given: Yes (UP TO DATE) Hx Influenza Vaccination/Date Given: No Hx Pneumococcal Vaccination/Date Given: No - Review of Systems Constitutional: No Fever, No Chills Eyes: No Symptoms Ears, Nose, & Throat: No Symptoms Cardiac: No Chest Pain Abdominal/Gastrointestinal: Abdominal Pain (lower abd cramping), No Nausea, No Vomiting, No Diarrhea Genitourinary Symptoms: Vaginal Discharge, No Dysuria, No , No Vaginal Bleeding Musculoskeletal: No Back Pain Skin: No Rash Neurological: No Headache All Other Systems: Reviewed and Negative - Past Medical History Pertinent Past Medical History: Yes Neurological History: No Pertinent History ENT History: No Pertinent History Cardiac History: No Pertinent History Respiratory History: No Pertinent History Endocrine Medical History: No Pertinent History Musculoskeletal History: Fractures GI Medical History: No Pertinent History History: No Pertinent History Psycho-Social History: No Pertinent History Female Reproductive Disorders: Cervical Cancer Other Medical History: Cervical Dysplasia - Past Surgical History Past Surgical History: Yes Gastrointestinal: Cholecystectomy, Hernia Repair Musculoskeletal: Orthopedic Surgery Female Surgical History: Other - Social History Smoking Status: Never smoker Exposure to second hand smoke: No Drug Use: none Patient Lives Alone: No - Female History Hx Last Menstrual Period: 2016 Hx Now: No - Nursing Vital Signs Nursing Vital Signs: Initial Vital Signs Temperature 98.7 F 07/08/17 15:22 Pulse Rate 107 H 07/08/17 15:22 Respiratory Rate 20 07/08/17 15:22 Blood Pressure 134/75 07/08/17 15:22 O2 Sat by Pulse Oximetry 100 07/08/17 15:22 Pain Scale Pain Intensity 0 - Physical Exam General Appearance: alert, obese Ears, Nose, Throat Exam: normal ENT inspection, moist mucous membranes Neck Exam: normal inspection, non-tender, supple Respiratory Exam: normal breath sounds Cardiovascular Exam: regular rate/rhythm Gastrointestinal/Abdomen Exam: soft, No tenderness, No distention, No mass, No guarding Pelvic Exam: normal external exam, cervical motion tenderness, vaginal discharge (copious clear thick discharge), No adnexal mass, No vaginal bleeding Extremity Exam: normal inspection, normal range of motion Neurologic Exam: alert, oriented x 3, cooperative Skin Exam: warm, dry, No rash SpO2 Interpretation: normal SpO2: 100 Oxygen Delivery: Room Air - Course Nursing assessment & vital signs reviewed: Yes Ordered Tests: Active Orders 24 hr Category Date Time Status Cath for Specimen-Straight STAT Care 07/08/17 15:35 Active Pelvic Exam Assist STAT Care 07/08/17 15:35 Active CBC W DIFF Stat Lab 07/08/17 15:36 Completed HCG QUALITATIVE,SERUM Stat Lab 07/08/17 15:36 Completed UA W/RFX UR CULTURE Stat Lab 07/08/17 15:35 Completed Wet Prep Stat Lab 07/08/17 15:35 Completed Medication Summary Discontinued Medications Generic Name Dose Route Start Last Admin Trade Name Freq PRN Reason Stop Dose Admin Cefazolin Sodium 1 g 07/08/17 16:23 Kefzol 1 Gm IM 07/08/17 16:24 STAT ONE Ceftriaxone Sodium 1,000 mg 07/08/17 16:24 Rocephin 1000 Mg Inj IM 07/08/17 16:25 STAT ONE Doxycycline Hyclate 100 mg 07/08/17 16:24 Vibramycin 100 Mg PO 07/08/17 16:25 STAT ONE Ketorolac Tromethamine 60 mg 07/08/17 16:18 Toradol 30 Mg Injection IM 07/08/17 16:19 STAT ONE Lab/Rad Data: Laboratory Result Diagrams 07/08/17 15:36 Laboratory Results 07/08/17 07/08/17 07/08/17 Range/Units 15:36 15:36 15:35 WBC 5.5 (4.0-10.5) K/mm3 RBC 4.97 (4.1-5.4) M/mm3 Hgb 12.3 (12.0-16.0) gm/dl Hct 39.1 (35-47) % MCV 78.7 (78-100) fl MCH 24.7 L (26-32) pg MCHC 31.5 L (32-36) g/dl RDW 15.2 H (11.5-14.0) % Plt Count 390 (150-450) K/mm3 MPV 9.8 H (6-9.5) fl Gran % 62.7 (36.0-66.0) % Lymphocytes % 28.3 (24.0-44.0) % Monocytes % 6.4 (0.0-12.0) % Eosinophils % 2.4 (0.00-5.0) % Basophils % 0.2 (0.0-0.4) % Basophils # 0.01 (0-0.4) Serum , Qual NEGATIVE (Negative) Ur Collection Type CATH Urine Color YELLOW (YELLOW) Urine Appearance CLEAR (CLEAR) Urine pH 5.0 (5-6) Ur Specific Manning 1.020 (1.005-1.025) Urine Protein NEGATIVE (Negative) Urine Ketones TRACE (NEGATIVE) Urine Blood NEGATIVE (0-5) Kody/ul Urine Nitrite NEGATIVE (NEGATIVE) Urine Bilirubin NEGATIVE (NEGATIVE) Urine Urobilinogen NORMAL (0-1) mg/dL Ur Leukocyte Esterase NEGATIVE (NEGATIVE) Urine Culture Reflexed NO (NO) Urine Glucose NEGATIVE (NEGATIVE) mg/dL WBC (Wet Prep) Few RBC (Wet Prep) Rare Epi Cells (Wet Prep) Moderate Bacteria (Wet Prep) Few Clue Cells (Wet Prep) None Seen Trichomonas (Wet Prep) None Seen Budding Yeast (Wet Prp) None Seen Specimen Received 07/08/17 1515 - Progress Progress Note: 07/08/17 16:44 Will treat as PID. She sees Dr Keri Cano. 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 NT abdomen so will not pursue imaging at this time. Counseled pt/family regarding: lab results, diagnosis, need for follow-up - Departure Time of Disposition: 16:45 Departure Disposition: Home Clinical Impression: PID (acute pelvic inflammatory disease) Condition: Stable Critical Care Time: No Referrals: CHUCK ABEL MD [Primary Care Provider] - MART CHAPARRO [NON-STAFF PHY W/O PRIVILEGES] - Instructions: Pelvic Inflammatory Disease (DC) Additional Instructions: ABDOMINAL PAIN 1. There are several different causes for abdominal pain, some of which may not be able to be identified on initial examination. 2. The important thing to remember is that bodily functions can change in a short period of time. If you notice any of the following symptoms, return to the emergency department or consult your doctor immediately: A. Worsening pain or no improvement in the next 12 hours. B. Increasing, severe abdominal pain C. Blood in stool D. Black stools E. Persistent vomiting F. Fever or chills or other symptoms Rx doxycycline. Rx motrin=ibuprofen. Follow up with Dr Hernández. Return for problems or concerns. Off work today. Prescriptions: Ibuprofen 1 tab PO Q6H PRN PRN #20 tablet PRN Reason: pain Doxycycline Hyclate 100 mg [Vibramycin 100 MG] 100 mg PO BID #27 tab
[2017-07-08 15:53] LABS: BASOPHIL % 0.2 % (0.0-0.4); Basophil (Absolute #) 0.01 (0-0.4); Eosinophil % 2.4 % (0.00-5.0); Eosinophil (Absolute #) 0.13 (0-0.5); Granulocyte Absolute (ANC) 3.42 (1.4-6.9); Granulocytes % 62.7 % (36.0-66.0); Hematocrit 39.1 % (35-47); Hemoglobin 12.3 gm/dl (12.0-16.0); Lymphocyte (Absolute #) 1.54 (1.0-4.6); Lymphocytes % 28.3 % (24.0-44.0); Mean Cell Volume 78.7 fl (78-100); Mean Corpuscular Hemoglobin 24.7 pg (26-32); Mean Corpuscular Hgb Concent. 31.5 g/dl (32-36); Mean Platelet Volume 9.8 fl (6-9.5); Monocyte (Absolute #) 0.35 (0.0-1.3); Monocytes % 6.4 % (0.0-12.0); Platelet Count 390 K/mm3 (150-450); Red Blood Count 4.97 M/mm3 (4.1-5.4); Red Cell Distribution Width 15.2 % (11.5-14.0); White Blood Count 5.5 K/mm3 (4.0-10.5)
[2017-07-08] MEDS ORDERED: TORAdol 30 mg Injection IM ONE (16:18)
[2017-07-08] MEDS ORDERED: KEFZOL 1 GM IM ONE (16:23)
[2017-07-08] MEDS ORDERED: Rocephin 1000 MG INJ IM ONE (16:24)
[2017-07-08] MEDS ORDERED: Vibramycin 100 MG PO ONE (16:24)
[2017-07-08 16:25] LABS: Appearance CLEAR (CLEAR); Bilirubin NEGATIVE (NEGATIVE); Blood NEGATIVE Ery/ul (0-5); Glucose NEGATIVE (NEGATIVE); Ketones TRACE (NEGATIVE); Leukocyte Esterase NEGATIVE (NEGATIVE); Nitrite NEGATIVE (NEGATIVE); Protein,Urine Dip NEGATIVE (Negative); Urobilinogen NORMAL mg/dL (0-1)
[2017-07-08 16:28] LABS: Bacteria Few; Clue Cells None Seen; Red Blood Cells Rare; Trichomonas None Seen; White Blood Cells Few; Yeast None Seen
[2017-07-08] MEDS ORDERED: Vibramycin 100 MG ONE (16:48)
[2017-07-08] MEDS ORDERED: XYLOCAINE 1% HCL 20 ML MDV ONE (16:48)
[2017-07-08] MEDS ORDERED: Rocephin 1000 MG INJ ONE (16:48)
[2017-07-08] MEDS ORDERED: TORAdol 30 mg Injection ONE (16:48)
[2017-07-08 17:26] VITALS: BP 132/73; PULSE 86
== END 2017-07-08 17:24 | disposition home or self-care (01) ==
LOC: ED 15:03
DX: N73.9 Female pelvic inflammatory disease, unspecified (principal)
CPT/HCPCS: 36415; 81002; 84703; 85025; 87210; 87490; 87590; 96372; 99283; 99284; J0696; J1885; P9612; A9270-GY

== ENCOUNTER 2017-12-26 07:27 | Emergency (ER) | payer OTHER ==
[2017-12-26] MEDS ORDERED: BABY ASPIRIN 81 MG CHEW PO ONE (07:37)
[2017-12-26] MEDS ORDERED: BABY ASPIRIN 81 MG CHEW ONE (07:41)
--- NOTE | 2017-12-26 07:44 | ERPHSYRPT ---
- History of Present Illness Time Seen by Provider: 12/26/17 07:39 Historian: patient Exam Limitations: no limitations Patient Subjective Stated Complaint: Chest Pain since yesterday, worse with movement Triage Nursing Assessment: Pt presents to the ED with complaints of chest pain x24 hours. Pt states pain worse with movement and deep breathing. Pt states she took tylenol and motrin yesterday with no improvement. Pt denies couch, trauma, or other complaints. No distress noted, skin PWD. Physician History: 22-year-old white female with history of cervical dysplasia fractures She arrives with complaint of pain in the left anterior chest radiating to her back described as sharp worse with breathing associated with shortness of breath since yesterday. No relief with ibuprofen. No nausea. Past medical history includes fractures, cervical dysplasia, past surgical history includes cholecystectomy and hernia repair orthopedic surgery cervical conization. Social history patient admits to tobacco and marijuana use. Last period last month patient denies chance of . Timing/Duration: yesterday Activities at Onset: none Quality: sharpness Location: other (left chest radiating to her back) Chest Pain Radiation: back Severity of Pain-Max: moderate Severity of Pain-Current: moderate Modifying Factors: Improves With: other (Patient taking ibuprofen since yesterday) Associated Symptoms: shortness of breath, hurts to breathe, No nausea, No vomiting, No palpitations, No heartburn, No abdominal pain, No cough, No diaphoresis, No chills, No fever, No fatigue, No weakness, No syncope, No rash, No headache, No dizziness, No edema, No back pain Prior Chest Pain/Cardiac Workup: non-cardiac (patient seen in the past for fluttering in her chest workup negative) Nitro Today/Relief: no nitro taken today Aspirin Treatment Today: 81 mg x 4, provided by ED Allergies/Adverse Reactions: clarithromycin [From Biaxin] Allergy (Verified 07/08/17 15:28) Rash Home Medications: No Reportable Medications [No Reported Medications] 12/26/17 [History] Hx Tetanus, Diphtheria Vaccination/Date Given: No Hx Influenza Vaccination/Date Given: No Hx Pneumococcal Vaccination/Date Given: No Immunizations Up to Date: No - Review of Systems Constitutional: No Fever, No Chills Eyes: No Symptoms Ears, Nose, & Throat: No Symptoms Respiratory: Dyspnea, Other (pain with breathing left anterior chest), No Cough , No Cyanosis, No Dyspnea on Exertion (CASTANEDA), No Stridor, No Wheezing Cardiac: Chest Pain Abdominal/Gastrointestinal: No Abdominal Pain, No Nausea, No Vomiting, No Diarrhea Genitourinary Symptoms: No Dysuria Musculoskeletal: No Back Pain, No Neck Pain Skin: No Rash Neurological: No Dizziness, No Focal Weakness, No Sensory Changes Psychological: No Symptoms Endocrine: No Symptoms All Other Systems: Reviewed and Negative - Past Medical History Pertinent Past Medical History: Yes Neurological History: No Pertinent History ENT History: No Pertinent History Cardiac History: No Pertinent History Respiratory History: No Pertinent History Endocrine Medical History: No Pertinent History Musculoskeletal History: Fractures GI Medical History: No Pertinent History History: No Pertinent History Psycho-Social History: No Pertinent History Female Reproductive Disorders: Cervical Cancer Other Medical History: Cervical Dysplasia - Past Surgical History Past Surgical History: Yes Gastrointestinal: Cholecystectomy, Hernia Repair Musculoskeletal: Orthopedic Surgery Female Surgical History: Other - Social History Smoking Status: Current every day smoker How long have you smoked: 1 year Exposure to second hand smoke: Yes Drug Use: marijuana Patient Lives Alone: Yes - Female History Hx Last Menstrual Period: 12/10/2017 Hx Now: No - Nursing Vital Signs Nursing Vital Signs: Initial Vital Signs Temperature 98.7 F 12/26/17 07:29 Pulse Rate 83 12/26/17 07:29 Respiratory Rate 16 12/26/17 07:29 Blood Pressure 115/86 12/26/17 07:29 O2 Sat by Pulse Oximetry 100 12/26/17 07:29 Pain Scale Pain Intensity 4 - Physical Exam General Appearance: anxiety, other (well-developed white female, anxious alert oriented 3) Eye Exam: PERRL/EOMI, eyes nml inspection Ears, Nose, Throat Exam: normal ENT inspection, moist mucous membranes Neck Exam: normal inspection, non-tender, supple, full range of motion Respiratory Exam: normal breath sounds, lungs clear, No respiratory distress Cardiovascular Exam: regular rate/rhythm, normal heart sounds Gastrointestinal/Abdomen Exam: soft, No tenderness, No mass Back Exam: normal inspection, No CVA tenderness, No vertebral tenderness Extremity Exam: normal inspection, normal range of motion Neurologic Exam: alert, oriented x 3, cooperative, talent scout II-XII nml as tested, normal mood/affect, sensation nml, No motor deficits Skin Exam: normal color, warm, dry SpO2 Interpretation: normal (100%) SpO2: 100 Oxygen Delivery: Room Air - Course Nursing assessment & vital signs reviewed: Yes EKG Interpreted by Me: RATE (82 bpm), Sinus Rhythm, NORMAL AXIS, Other (EKG: Normal sinus rhythm, 82 bpm, normal axis, no acute st or t wave changes, essentially normal EKG, compared to May 18, 2017) - Radiology Exams Chest X-ray Interpretation: Discussed w/ radiologist, Negative, No Pneumonia, No Pneumothorax Ordered Tests: Active Orders 24 hr Category Date Time Status Loft Worker Head STAT Care 12/26/17 07:38 Active EKG-ER Only STAT Care 12/26/17 07:37 Active IV Insertion STAT Care 12/26/17 07:37 Active Pulse Oximetry (ED) STAT Care 12/26/17 07:37 Active CHEST 1 VIEW (PORTABLE) Stat Exams 12/26/17 07:38 Completed AMYLASE Stat Lab 12/26/17 07:40 Completed CBC W DIFF Stat Lab 12/26/17 07:40 Completed CMP Stat Lab 12/26/17 07:40 Completed D-DIMER QUANTITATION Stat Lab 12/26/17 07:40 Completed HCG QUALITATIVE,SERUM Stat Lab 12/26/17 08:00 Completed LIPASE Stat Lab 12/26/17 07:40 Completed TROPONIN Q3H Lab 12/26/17 07:40 Completed TROPONIN Q3H Lab 12/26/17 10:45 Ordered TROPONIN Q3H Lab 12/26/17 13:45 Ordered TROPONIN Q3H Lab 12/26/17 16:45 Ordered TROPONIN Q3H Lab 12/26/17 19:45 Ordered UA W/RFX UR CULTURE Stat Lab 12/26/17 08:25 Completed Urine Triage Profile Stat Lab 12/26/17 08:25 Completed Medication Summary Discontinued Medications Generic Name Dose Route Start Last Admin Trade Name Freq PRN Reason Stop Dose Admin Aspirin 324 mg 12/26/17 07:37 12/26/17 07:42 Baby Aspirin 81 Mg Chew PO 12/26/17 07:38 324 mg STAT ONE Administration Aspirin Confirm 12/26/17 07:41 Baby Aspirin 81 Mg Chew Administered 12/26/17 07:42 Dose 324 mg .ROUTE .STK-MED ONE Ketorolac Tromethamine 30 mg 12/26/17 09:08 12/26/17 09:12 Toradol 30 Mg Injection IV 12/26/17 09:09 30 mg STAT ONE Administration Ketorolac Tromethamine Confirm 12/26/17 09:11 Toradol 30 Mg Injection Administered 12/26/17 09:12 Dose 30 mg .ROUTE .STK-MED ONE Morphine Sulfate 4 mg 12/26/17 07:58 12/26/17 08:02 Morphine Sulfate 4 Mg Inj IV 12/26/17 07:59 4 mg STAT ONE Administration Morphine Sulfate Confirm 12/26/17 08:01 Morphine Sulfate 4 Mg Inj Administered 12/26/17 08:02 Dose 4 mg .ROUTE .STK-MED ONE Ondansetron HCl 4 mg 12/26/17 07:59 12/26/17 08:01 Zofran 4 Mg/2 Ml Vial IV 12/26/17 08:00 4 mg STAT ONE Administration Ondansetron HCl Confirm 12/26/17 08:01 Zofran 4 Mg/2 Ml Vial Administered 12/26/17 08:02 Dose 4 mg .ROUTE .STK-MED ONE Lab/Rad Data: Laboratory Result Diagrams 12/26/17 07:40 12/26/17 07:40 Laboratory Results 12/26/17 12/26/17 12/26/17 Range/Units 08:25 08:25 08:00 WBC (4.0-10.5) K/mm3 RBC (4.1-5.4) M/mm3 Hgb (12.0-16.0) gm/dl Hct (35-47) % MCV (78-100) fl MCH (26-32) pg MCHC (32-36) g/dl RDW (11.5-14.0) % Plt Count (150-450) K/mm3 MPV (6-9.5) fl Gran % (36.0-66.0) % Eos # (Auto) (0-0.5) Absolute Lymphs (auto) (1.0-4.6) Absolute Monos (auto) (0.0-1.3) Lymphocytes % (24.0-44.0) % Monocytes % (0.0-12.0) % Eosinophils % (0.00-5.0) % Basophils % (0.0-0.4) % Absolute Granulocytes (1.4-6.9) Basophils # (0-0.4) D-Dimer (215-500) ng/mL Sodium (137-145) mmol/L Potassium (3.5-5.1) mmol/L Chloride (98-107) mmol/L Carbon Dioxide (22-30) mmol/L Anion Gap (5-15) MEQ/L BUN (7-17) mg/dL Creatinine (0.52-1.04) mg/dL Estimated GFR ML/MIN Glucose (74-106) mg/dL Calcium (8.4-10.2) mg/dL Total Bilirubin (0.2-1.3) mg/dL AST (14-36) U/L ALT (0-35) U/L Alkaline Phosphatase (38-126) U/L Troponin I (0.000-0.034) ng/mL Serum Total Protein (6.3-8.2) g/dL Albumin (3.5-5.0) g/dL Amylase (30-110) U/L Lipase (23-300) U/L Serum , Qual NEGATIVE (Negative) Ur Collection Type CCMS Urine Color LT.YELLOW (YELLOW) Urine Appearance CLEAR (CLEAR) Urine pH 5.0 (5-6) Ur Specific [place] 1.025 (1.005-1.025) Urine Protein NEGATIVE (Negative) Urine Ketones TRACE (NEGATIVE) Urine Blood NEGATIVE (0-5) Kody/ul Urine Nitrite NEGATIVE (NEGATIVE) Urine Bilirubin NEGATIVE (NEGATIVE) Urine Urobilinogen NORMAL (0-1) mg/dL Ur Leukocyte Esterase NEGATIVE (NEGATIVE) Urine Culture Reflexed NO (NO) Urine Glucose NEGATIVE (NEGATIVE) mg/dL Urine Opiates Level POSITIVE (NEGATIVE) Ur Methadone NEGATIVE (NEGATIVE) Urine Barbiturates NEGATIVE (NEGATIVE) Ur Phencyclidine (PCP) NEGATIVE (NEGATIVE) Urine Amphetamine NEGATIVE (NEGATIVE) U Benzodiazepine Level NEGATIVE (NEGATIVE) Urine Cocaine NEGATIVE (NEGATIVE) Urine Marijuana (THC) POSITIVE (NEGATIVE) Specimen Received 12/26 0812/26/17 12/26/17 12/26/17 Range/Units 07:40 07:40 07:40 WBC (4.0-10.5) K/mm3 RBC (4.1-5.4) M/mm3 Hgb (12.0-16.0) gm/dl Hct (35-47) % MCV (78-100) fl MCH (26-32) pg MCHC (32-36) g/dl RDW (11.5-14.0) % Plt Count (150-450) K/mm3 MPV (6-9.5) fl Gran % (36.0-66.0) % Eos # (Auto) (0-0.5) Absolute Lymphs (auto) (1.0-4.6) Absolute Monos (auto) (0.0-1.3) Lymphocytes % (24.0-44.0) % Monocytes % (0.0-12.0) % Eosinophils % (0.00-5.0) % Basophils % (0.0-0.4) % Absolute Granulocytes (1.4-6.9) Basophils # (0-0.4) D-Dimer 495 (215-500) ng/mL Sodium 139 (137-145) mmol/L Potassium 4.2 (3.5-5.1) mmol/L Chloride 107 (98-107) mmol/L Carbon Dioxide 22 (22-30) mmol/L Anion Gap 14.2 (5-15) MEQ/L BUN 10 (7-17) mg/dL Creatinine 0.56 (0.52-1.04) mg/dL Estimated GFR > 60.0 ML/MIN Glucose 104 (74-106) mg/dL Calcium 9.0 (8.4-10.2) mg/dL Total Bilirubin 0.40 (0.2-1.3) mg/dL AST 22 (14-36) U/L ALT 28 (0-35) U/L Alkaline Phosphatase 51 (38-126) U/L Troponin I < 0.012 (0.000-0.034) ng/mL Serum Total Protein 8.2 (6.3-8.2) g/dL Albumin 4.3 (3.5-5.0) g/dL Amylase 44 (30-110) U/L Lipase 52 (23-300) U/L Serum , Qual (Negative) Ur Collection Type Urine Color (YELLOW) Urine Appearance (CLEAR) Urine pH (5-6) Ur Specific [place] (1.005-1.025) Urine Protein (Negative) Urine Ketones (NEGATIVE) Urine Blood (0-5) Kody/ul Urine Nitrite (NEGATIVE) Urine Bilirubin (NEGATIVE) Urine Urobilinogen (0-1) mg/dL Ur Leukocyte Esterase (NEGATIVE) Urine Culture Reflexed (NO) Urine Glucose (NEGATIVE) mg/dL Urine Opiates Level (NEGATIVE) Ur Methadone (NEGATIVE) Urine Barbiturates (NEGATIVE) Ur Phencyclidine (PCP) (NEGATIVE) Urine Amphetamine (NEGATIVE) U Benzodiazepine Level (NEGATIVE) Urine Cocaine (NEGATIVE) Urine Marijuana (THC) (NEGATIVE) Specimen Received 12/26/17 Range/Units 07:40 WBC 7.9 (4.0-10.5) K/mm3 RBC 4.63 (4.1-5.4) M/mm3 Hgb 11.2 L (12.0-16.0) gm/dl Hct 35.3 (35-47) % MCV 76.2 L (78-100) fl MCH 24.1 L (26-32) pg MCHC 31.7 L (32-36) g/dl RDW 15.8 H (11.5-14.0) % Plt Count 329 (150-450) K/mm3 MPV 9.8 H (6-9.5) fl Gran % 70.2 H (36.0-66.0) % Eos # (Auto) 0.10 (0-0.5) Absolute Lymphs (auto) 1.51 (1.0-4.6) Absolute Monos (auto) 0.72 (0.0-1.3) Lymphocytes % 19.2 L (24.0-44.0) % Monocytes % 9.2 (0.0-12.0) % Eosinophils % 1.3 (0.00-5.0) % Basophils % 0.1 (0.0-0.4) % Absolute Granulocytes 5.52 (1.4-6.9) Basophils # 0.01 (0-0.4) D-Dimer (215-500) ng/mL Sodium (137-145) mmol/L Potassium (3.5-5.1) mmol/L Chloride (98-107) mmol/L Carbon Dioxide (22-30) mmol/L Anion Gap (5-15) MEQ/L BUN (7-17) mg/dL Creatinine (0.52-1.04) mg/dL Estimated GFR ML/MIN Glucose (74-106) mg/dL Calcium (8.4-10.2) mg/dL Total Bilirubin (0.2-1.3) mg/dL AST (14-36) U/L ALT (0-35) U/L Alkaline Phosphatase (38-126) U/L Troponin I (0.000-0.034) ng/mL Serum Total Protein (6.3-8.2) g/dL Albumin (3.5-5.0) g/dL Amylase (30-110) U/L Lipase (23-300) U/L Serum , Qual (Negative) Ur Collection Type Urine Color (YELLOW) Urine Appearance (CLEAR) Urine pH (5-6) Ur Specific [place] (1.005-1.025) Urine Protein (Negative) Urine Ketones (NEGATIVE) Urine Blood (0-5) Kody/ul Urine Nitrite (NEGATIVE) Urine Bilirubin (NEGATIVE) Urine Urobilinogen (0-1) mg/dL Ur Leukocyte Esterase (NEGATIVE) Urine Culture Reflexed (NO) Urine Glucose (NEGATIVE) mg/dL Urine Opiates Level (NEGATIVE) Ur Methadone (NEGATIVE) Urine Barbiturates (NEGATIVE) Ur Phencyclidine (PCP) (NEGATIVE) Urine Amphetamine (NEGATIVE) U Benzodiazepine Level (NEGATIVE) Urine Cocaine (NEGATIVE) Urine Marijuana (THC) (NEGATIVE) Specimen Received - Progress Progress: improved Air Movement: fair Progress Note: 12/26/17 07:43 22-year-old white female previously healthy arrives with complaint of sharp chest pain left anterior chest radiating to her back worse with breathing symptoms since yesterday, Patient is quite anxious. She has been taking Motrin without relief. Patient without history of cardiac disease. Will go ahead and give patient aspirin 324 mg obtain chest x-ray routine labs including troponin amylase lipase CBC CMP, Will obtain hCG patient does deny chance of , 12/26/17 09:09 Patient's labs essentially normal CBC normal CMP normal d-dimer normal troponin normal.. EKG no acute changes sinus rhythm essentially normal EKG. Chest x-ray essentially normal. Urine drug screen positive for opiates , THC Patient was given morphine in the emergency room. Patient states she still hurts when she was given morphine in the emergency room. Will go ahead and give patient Toradol 30 mg IV. She has received aspirin 324 by mouth. Plan to discharge. Patient does not want to stay to repeat troponin patient's pain is atypical classic for pleurisy. - Departure Time of Disposition: 09:43 Departure Disposition: Home Clinical Impression: Non-cardiac chest pain, Pleurisy Condition: Fair Critical Care Time: No Referrals: CHUCK ABEL MD [Primary Care Provider] - Additional Instructions: Return home. Plenty of fluids. Tylenol every 4 hours or Motrin every 6 hours as needed for pain. Follow-up with your family doctor. Return for acute distress or for severe symptoms. Stop smoking.. Avoid illicit substances.
[2017-12-26 07:54] LABS: BASOPHIL % 0.1 % (0.0-0.4); Basophil (Absolute #) 0.01 (0-0.4); Eosinophil % 1.3 % (0.00-5.0); Granulocyte Absolute (ANC) 5.52 (1.4-6.9); Granulocytes % 70.2 % (36.0-66.0); Hematocrit 35.3 % (35-47); Hemoglobin 11.2 gm/dl (12.0-16.0); Lymphocyte (Absolute #) 1.51 (1.0-4.6); Lymphocytes % 19.2 % (24.0-44.0); Mean Cell Volume 76.2 fl (78-100); Mean Corpuscular Hgb Concent. 31.7 g/dl (32-36); Mean Platelet Volume 9.8 fl (6-9.5); Monocyte (Absolute #) 0.72 (0.0-1.3); Monocytes % 9.2 % (0.0-12.0); Platelet Count 329 K/mm3 (150-450); Red Blood Count 4.63 M/mm3 (4.1-5.4); Red Cell Distribution Width 15.8 % (11.5-14.0); White Blood Count 7.9 K/mm3 (4.0-10.5)
[2017-12-26 07:55] LABS: Mean Corpuscular Hemoglobin 24.1 pg (26-32)
[2017-12-26] MEDS ORDERED: MORPHINE SULFATE 4 MG INJ IV ONE (07:58)
[2017-12-26] MEDS ORDERED: Zofran 4 MG/2 ML VIAL IV ONE (07:59)
[2017-12-26] MEDS ORDERED: Zofran 4 MG/2 ML VIAL ONE (08:01)
[2017-12-26] MEDS ORDERED: MORPHINE SULFATE 4 MG INJ ONE (08:01)
[2017-12-26 08:15] LABS: ALBUMIN 4.3 g/dL (3.5-5.0); ALKALINE PHOSPHATASE 51 U/L (38-126); AMYLASE 44 U/L (30-110); ANION GAP 14.2 MEQ/L (5-15); BLOOD UREA NITROGEN 10 mg/dL (7-17); CHLORIDE 107 mmol/L (98-107); Carbon Dioxide 22 mmol/L (22-30); Creatinine 1 0.56 mg/dL (0.52-1.04); Glucose 104 mg/dL (74-106); LIPASE 52 U/L (23-300); Potassium 4.2 mmol/L (3.5-5.1); SGOT/AST 22 U/L (14-36); SGPT/ALT 28 U/L (0-35); SODIUM 139 mmol/L (137-145); Total Protein 8.2 g/dL (6.3-8.2)
[2017-12-26 08:37] LABS: Appearance CLEAR (CLEAR); Bilirubin NEGATIVE (NEGATIVE); Blood NEGATIVE Ery/ul (0-5); Glucose NEGATIVE (NEGATIVE); Ketones TRACE (NEGATIVE); Leukocyte Esterase NEGATIVE (NEGATIVE); Nitrite NEGATIVE (NEGATIVE); Protein,Urine Dip NEGATIVE (Negative); Specific Gravity 1.025 (1.005-1.025); Urobilinogen NORMAL mg/dL (0-1)
[2017-12-26 08:57] LABS: Amphetamine,Urine NEGATIVE (NEGATIVE); Barbiturate,Urine NEGATIVE (NEGATIVE); Benzodiazepine,Urine NEGATIVE (NEGATIVE); Cocaine,Urine NEGATIVE (NEGATIVE); Methadone,Urine NEGATIVE (NEGATIVE); Opiate,Urine POSITIVE (NEGATIVE); PCP,Urine NEGATIVE (NEGATIVE); THC,Urine POSITIVE (NEGATIVE)
[2017-12-26] MEDS ORDERED: TORAdol 30 mg Injection IV ONE (09:08)
[2017-12-26] MEDS ORDERED: TORAdol 30 mg Injection ONE (09:11)
--- NOTE | 2017-12-26 09:43 | XRAY ---
Indication: Chest pain. Comparison: January 29, 2017. Portable chest remains clear. Heart and mediastinal structures within normal limits. Bony thorax intact. Impression: Stable nonacute chest.
[2017-12-26 09:53] VITALS: BP 117/85; PULSE 80; O2SAT 98
== END 2017-12-26 09:55 | disposition home or self-care (01) ==
LOC: ED 07:27
DX: R07.89 Other chest pain (principal); R09.1 Pleurisy; R06.02 Shortness of breath
CPT/HCPCS: 36000; 36415; 71045; 80053; 80307; 81002; 82150; 83690; 84484; 84703; 85025; 85379; 93005; 93041; 96374; 96375; 99284; J1885; J2270; J2405; A9270-GY

== ENCOUNTER 2018-01-21 14:29 | Emergency (ER) | payer OTHER ==
[2018-01-21 14:55] VITALS: BP 121/72; PULSE 83; O2SAT 95
[2018-01-21] MEDS ORDERED: Sodium Chloride 0.9% 1000 ML 1,000 ML IV STA (15:04)
--- NOTE | 2018-01-21 15:08 | ERPHSYRPT ---
- History of Present Illness Time Seen by Provider: 01/21/18 14:57 Historian: patient Exam Limitations: no limitations Patient Subjective Stated Complaint: unsure if she is . has had unprotected sex. has had a couple of + home tests states had a spot of blood on tissue last night. abdominal cramping.. none at this time Triage Nursing Assessment: alert and anxious. states low abdominal cramping. unsure if . took home tests that were positive. states has a spot of blood last night when wiped. none today. no cramping now. anxious about possibly being Physician History: 22-year-old white female arrives with complaint of suprapubic cramping, she states she's had some spotting She states she took 3 tests at home which were weakly positive. Patient has not had any vomiting.. Past medical history patient apparently has had a cervical conization. Timing/Duration: yesterday Activities at Onset: none Quality: cramping Abdominal Pain Onset Location: suprapubic Pain Radiation: no radiation Severity of Pain-Max: mild Severity of Pain-Current: mild Modifying Factors: Improves With: nothing Associated Symptoms: No back, No chest pain, No diaphoresis, No diarrhea, No fever/chills, No fatigue, No headache, No heartburn, No loss of appetite, No nausea, No neck pain, No rash, No shortness of breath, No syncope, No vomiting, No weakness Previous symptoms: no prior history Allergies/Adverse Reactions: clarithromycin [From Biaxin] Allergy (Verified 07/08/17 15:28) Rash Hx Tetanus, Diphtheria Vaccination/Date Given: No Hx Influenza Vaccination/Date Given: No Hx Pneumococcal Vaccination/Date Given: No - Review of Systems Constitutional: No Fever, No Chills Eyes: No Symptoms Ears, Nose, & Throat: No Symptoms Respiratory: No Cough, No Dyspnea Cardiac: No Chest Pain, No Edema, No Syncope Abdominal/Gastrointestinal: Abdominal Pain (suprapubic abdominal pain), No Nausea, No Vomiting, No Diarrhea, No Constipation, No Hematemesis, No Hematochezia, No Melena Genitourinary Symptoms: Vaginal Bleeding (vaginal spotting), No Dysuria, No Frequency, No Hematuria, No Hesitancy, No Incontinence, No Urgency Musculoskeletal: No Back Pain, No Neck Pain Skin: No Rash Neurological: No Dizziness, No Focal Weakness, No Sensory Changes Psychological: No Symptoms Endocrine: No Symptoms All Other Systems: Reviewed and Negative - Past Medical History Pertinent Past Medical History: Yes Neurological History: No Pertinent History ENT History: No Pertinent History Cardiac History: No Pertinent History Respiratory History: No Pertinent History Endocrine Medical History: No Pertinent History Musculoskeletal History: Fractures GI Medical History: No Pertinent History History: No Pertinent History Psycho-Social History: No Pertinent History Female Reproductive Disorders: Cervical Cancer Other Medical History: Cervical Dysplasia - Past Surgical History Past Surgical History: Yes Gastrointestinal: Cholecystectomy, Hernia Repair Musculoskeletal: Orthopedic Surgery Female Surgical History: Other - Social History Smoking Status: Current every day smoker How long have you smoked: 1 year Exposure to second hand smoke: Yes Drug Use: marijuana Patient Lives Alone: No - Female History Hx Last Menstrual Period: 5 weeks Hx Now: (unknown) - Nursing Vital Signs Nursing Vital Signs: Initial Vital Signs Temperature 98.4 F 01/21/18 14:47 Pulse Rate 83 01/21/18 14:47 Respiratory Rate 18 01/21/18 14:47 Blood Pressure 121/72 01/21/18 14:47 O2 Sat by Pulse Oximetry 95 01/21/18 14:47 Pain Scale Pain Intensity 0 - Physical Exam General Appearance: no apparent distress, alert Eye Exam: PERRL/EOMI, eyes nml inspection Ears, Nose, Throat Exam: normal ENT inspection, pharynx normal, moist mucous membranes Neck Exam: normal inspection, non-tender, supple, full range of motion Respiratory Exam: normal breath sounds, lungs clear, No respiratory distress Cardiovascular Exam: regular rate/rhythm, normal heart sounds Gastrointestinal/Abdomen Exam: soft, normal bowel sounds, No tenderness, No mass Back Exam: normal inspection, normal range of motion, No CVA tenderness, No vertebral tenderness Extremity Exam: normal inspection, normal range of motion, pelvis stable Neurologic Exam: alert, oriented x 3, cooperative, memorial marker designer II-XII nml as tested, normal mood/affect, nml cerebellar function, sensation nml, No motor deficits Skin Exam: normal color, warm, dry SpO2 Interpretation: normal (95%) SpO2: 95 Oxygen Delivery: Room Air - Course Nursing assessment & vital signs reviewed: Yes Ordered Tests: Active Orders 24 hr Category Date Time Status IV Insertion STAT Care 01/21/18 15:04 Active CBC W DIFF Stat Lab 08/01/18 15:15 Completed CMP Stat Lab 01/21/18 15:15 Completed CULTURE,URINE Stat Lab 01/21/18 15:15 Received HCG QUALITATIVE,SERUM Stat Lab 01/21/18 15:15 Completed UA W/ MICROSCOPIC Stat Lab 01/21/18 15:15 Completed Medication Summary Generic Name Dose Route Start Last Admin Trade Name Jewell PRN Reason Stop Dose Admin Sodium Chloride 1,000 mls @ 999 mls/hr 01/21/18 15:04 01/21/18 15:25 Sodium Chloride 0.9% 1000 Ml IV 01/21/18 16:04 999 mls/hr .Q1H1M STA Administration Discontinued Medications Generic Name Dose Route Start Last Admin Trade Name Freq PRN Reason Stop Dose Admin Sodium Chloride Confirm 01/21/18 15:23 Sodium Chloride 0.9% 1000 Ml Administered 01/21/18 15:24 Dose 1,000 mls @ ud .ROUTE .STK-MED ONE Lab/Rad Data: Laboratory Result Diagrams 01/21/18 15:15 01/21/18 15:15 Laboratory Results 01/21/18 01/21/18 01/21/18 Range/Units 15:15 15:15 15:15 WBC (4.0-10.5) K/mm3 RBC (4.1-5.4) M/mm3 Hgb (12.0-16.0) gm/dl Hct (35-47) % MCV (78-100) fl MCH (26-32) pg MCHC (32-36) g/dl RDW (11.5-14.0) % Plt Count (150-450) K/mm3 MPV (6-9.5) fl Gran % (36.0-66.0) % Eos # (Auto) (0-0.5) Absolute Lymphs (auto) (1.0-4.6) Absolute Monos (auto) (0.0-1.3) Lymphocytes % (24.0-44.0) % Monocytes % (0.0-12.0) % Eosinophils % (0.00-5.0) % Basophils % (0.0-0.4) % Absolute Granulocytes (1.4-6.9) Basophils # (0-0.4) Sodium 139 (137-145) mmol/L Potassium 3.8 (3.5-5.1) mmol/L Chloride 105 (98-107) mmol/L Carbon Dioxide 26 (22-30) mmol/L Anion Gap 12.1 (5-15) MEQ/L BUN 10 (7-17) mg/dL Creatinine 0.57 (0.52-1.04) mg/dL Estimated GFR > 60.0 ML/MIN Glucose 97 (74-106) mg/dL Calcium 9.2 (8.4-10.2) mg/dL Total Bilirubin 0.20 (0.2-1.3) mg/dL AST 27 (14-36) U/L ALT 29 (0-35) U/L Alkaline Phosphatase 51 (38-126) U/L Serum Total Protein 7.9 (6.3-8.2) g/dL Albumin 4.2 (3.5-5.0) g/dL Serum , Qual NEGATIVE (Negative) Ur Collection Type VOID Urine Color YELLOW (YELLOW) Urine Appearance CLOUDY (CLEAR) Urine pH 5.0 (5-6) Ur Specific [place] 1.030 (1.005-1.025) Urine Protein 100 (Negative) Urine Ketones SMALL (NEGATIVE) Urine Blood 50 (0-5) Kody/ul Urine Nitrite NEGATIVE (NEGATIVE) Urine Bilirubin NEGATIVE (NEGATIVE) Urine Urobilinogen NORMAL (0-1) mg/dL Ur Leukocyte Esterase 2+ (NEGATIVE) Urine Microscopic RBC 5-10 (0-2) /HPF Urine Microscopic WBC 15-25 (0-5) /HPF Ur Epithelial Cells MANY (FEW) /HPF Urine Bacteria MODERATE (NEGATIVE) /HPF Urine Culture Reflexed YES (NO) Urine Glucose NEGATIVE (NEGATIVE) mg/dL Specimen Received 01/21/18 1500 01/21/18 Range/Units 15:15 WBC 5.8 (4.0-10.5) K/mm3 RBC 4.63 (4.1-5.4) M/mm3 Hgb 11.1 L (12.0-16.0) gm/dl Hct 35.2 (35-47) % MCV 76.0 L (78-100) fl MCH 23.9 L (26-32) pg MCHC 31.5 L (32-36) g/dl RDW 15.3 H (11.5-14.0) % Plt Count 326 (150-450) K/mm3 MPV 9.9 H (6-9.5) fl Gran % 60.0 (36.0-66.0) % Eos # (Auto) 0.13 (0-0.5) Absolute Lymphs (auto) 1.75 (1.0-4.6) Absolute Monos (auto) 0.43 (0.0-1.3) Lymphocytes % 30.2 (24.0-44.0) % Monocytes % 7.4 (0.0-12.0) % Eosinophils % 2.2 (0.00-5.0) % Basophils % 0.2 (0.0-0.4) % Absolute Granulocytes 3.48 (1.4-6.9) Basophils # 0.01 (0-0.4) Sodium (137-145) mmol/L Potassium (3.5-5.1) mmol/L Chloride (98-107) mmol/L Carbon Dioxide (22-30) mmol/L Anion Gap (5-15) MEQ/L BUN (7-17) mg/dL Creatinine (0.52-1.04) mg/dL Estimated GFR ML/MIN Glucose (74-106) mg/dL Calcium (8.4-10.2) mg/dL Total Bilirubin (0.2-1.3) mg/dL AST (14-36) U/L ALT (0-35) U/L Alkaline Phosphatase (38-126) U/L Serum Total Protein (6.3-8.2) g/dL Albumin (3.5-5.0) g/dL Serum , Qual (Negative) Ur Collection Type Urine Color (YELLOW) Urine Appearance (CLEAR) Urine pH (5-6) Ur Specific [place] (1.005-1.025) Urine Protein (Negative) Urine Ketones (NEGATIVE) Urine Blood (0-5) Kody/ul Urine Nitrite (NEGATIVE) Urine Bilirubin (NEGATIVE) Urine Urobilinogen (0-1) mg/dL Ur Leukocyte Esterase (NEGATIVE) Urine Microscopic RBC (0-2) /HPF Urine Microscopic WBC (0-5) /HPF Ur Epithelial Cells (FEW) /HPF Urine Bacteria (NEGATIVE) /HPF Urine Culture Reflexed (NO) Urine Glucose (NEGATIVE) mg/dL Specimen Received - Progress Progress: improved Progress Note: 01/21/18 15:48 This is a 22-year-old white female with complaint of suprapubic abdominal pain vaginal spotting symptoms since yesterday. Patient states that she did 3 home tests which were slightly positive. Patient's CBC slight anemia white blood cell within normal limits chemistry within normal as hCG is negative Urinalysis remarkable for 15-25 white cells per high-power field and 5-10 red cells per high-power field. Patient in no acute distress at this time. Will go ahead and place patient on Bactrim DS one orally twice a day for 10 days. Patient to take Advil or Tylenol for pain, plenty of fluids. She is follow-up with her family doctor. - Departure Time of Disposition: 15:50 Departure Disposition: Home Clinical Impression: Suprapubic abdominal pain UTI (urinary tract infection) Qualifiers: Urinary tract infection type: site unspecified Hematuria presence: with hematuria Qualified Code(s): N39.0 - Urinary tract infection, site not specified ; R31.9 - Hematuria, unspecified Condition: Fair Critical Care Time: No Referrals: CHUCK ABEL MD [Primary Care Provider] - Additional Instructions: Return home. Plenty of fluids. Bactrim DS as prescribed. Advil every 6 hours or Tylenol every 4 hours as needed for pain. Follow-up with your family doctor. Return for acute distress or for severe symptoms. Prescriptions: Smz/Tmp Ds Tablet [Bactrim Ds Tablet] 1 tab PO BID #20 tablet
[2018-01-21 15:21] LABS: Appearance CLOUDY (CLEAR); BASOPHIL % 0.2 % (0.0-0.4); Basophil (Absolute #) 0.01 (0-0.4); Eosinophil % 2.2 % (0.00-5.0); Eosinophil (Absolute #) 0.13 (0-0.5); Granulocyte Absolute (ANC) 3.48 (1.4-6.9); Hematocrit 35.2 % (35-47); Hemoglobin 11.1 gm/dl (12.0-16.0); Lymphocyte (Absolute #) 1.75 (1.0-4.6); Lymphocytes % 30.2 % (24.0-44.0); Mean Corpuscular Hgb Concent. 31.5 g/dl (32-36); Mean Platelet Volume 9.9 fl (6-9.5); Monocyte (Absolute #) 0.43 (0.0-1.3); Monocytes % 7.4 % (0.0-12.0); Platelet Count 326 K/mm3 (150-450); Red Blood Count 4.63 M/mm3 (4.1-5.4); Red Cell Distribution Width 15.3 % (11.5-14.0); White Blood Count 5.8 K/mm3 (4.0-10.5)
[2018-01-21 15:23] LABS: Bilirubin NEGATIVE (NEGATIVE); Blood 50 Ery/ul (0-5); Glucose NEGATIVE (NEGATIVE); Ketones SMALL (NEGATIVE); Leukocyte Esterase 2+ (NEGATIVE); Nitrite NEGATIVE (NEGATIVE); Protein,Urine Dip 100 (Negative); Urobilinogen NORMAL mg/dL (0-1)
[2018-01-21] MEDS ORDERED: Sodium Chloride 0.9% 1000 ML 1,000 ML ONE (15:23)
[2018-01-21 15:25] LABS: Mean Corpuscular Hemoglobin 23.9 pg (26-32)
[2018-01-21 15:30] LABS: WBC 15-25 /HPF (0-5)
[2018-01-21 15:31] LABS: Bacteria MODERATE /HPF (NEGATIVE); Epithelial Cells MANY /HPF (FEW)
[2018-01-21 15:43] LABS: ALBUMIN 4.2 g/dL (3.5-5.0); ALKALINE PHOSPHATASE 51 U/L (38-126); ANION GAP 12.1 MEQ/L (5-15); BLOOD UREA NITROGEN 10 mg/dL (7-17); CHLORIDE 105 mmol/L (98-107); Calcium 9.2 mg/dL (8.4-10.2); Carbon Dioxide 26 mmol/L (22-30); Creatinine 1 0.57 mg/dL (0.52-1.04); Glucose 97 mg/dL (74-106); Potassium 3.8 mmol/L (3.5-5.1); SGOT/AST 27 U/L (14-36); SGPT/ALT 29 U/L (0-35); SODIUM 139 mmol/L (137-145); Total Protein 7.9 g/dL (6.3-8.2)
== END 2018-01-21 16:02 | disposition home or self-care (01) ==
LOC: ED 14:29
DX: N39.0 Urinary tract infection, site not specified (principal); R10.9 Unspecified abdominal pain; Z72.0 Tobacco use; N93.9 Abnormal uterine and vaginal bleeding, unspecified; Z85.41 Personal history of malignant neoplasm of cervix uteri
CPT/HCPCS: 36000; 36415; 80053; 81000; 84703; 85025; 87086; 96360; 99283

== ENCOUNTER 2018-03-04 20:01 | Emergency (ER) | payer OTHER ==
[2018-03-04 20:16] VITALS: O2SAT 99
[2018-03-04] MEDS ORDERED: Fluor-I-Strip/Ful-Flo OP ONE ×2 (20:21→20:25)
[2018-03-04] MEDS ORDERED: TETRACAINE 0.5% STERI-UNIT SOL OP STA (20:21)
[2018-03-04] MEDS ORDERED: TETRACAINE 0.5% STERI-UNIT SOL OP ONE (20:24)
[2018-03-04] MEDS ORDERED: Eye-Stream Solution ONE (20:25)
[2018-03-04] MEDS ORDERED: Eye-Stream Solution OP ONE (20:26)
--- NOTE | 2018-03-04 20:32 | ERPHSYRPT ---
- History of Present Illness Time Seen by Provider: 03/04/18 20:22 Source: patient Exam Limitations: no limitations Patient Subjective Stated Complaint: pt states her right eye has been irritated and red for approx 3 days; tonight feels like there is something in her eye. Triage Nursing Assessment: pt a&o x3; skin p, w, & d; ambulated to room per self ; right eye appears red and swollen; no other distress at this time. Physician History: 22-year-old white female arrives with complaint of foreign body sensation pain in her right eye symptoms since 3 days she states she woke up with the above complaints. She denies any known injury she has had a small amount of drainage from her right eye. Past medical history includes fractures, cervical cancer, cervical dysplasia. Past surgical history includes cholecystectomy hernia repair and orthopedic surgery Timing/Duration: day(s) (3 days) Location: right eye Severity: moderate Apparent Injury: possibly Associated Symptoms: pain, burning Visual Assistive Devices: None Chemical Exposure: No Trauma: No Welding Arc/Tanning Bed Exposure: No Allergies/Adverse Reactions: clarithromycin [From Biaxin] Allergy (Verified 03/04/18 20:16) Rash Hx Tetanus, Diphtheria Vaccination/Date Given: Yes Hx Influenza Vaccination/Date Given: No Hx Pneumococcal Vaccination/Date Given: No Immunizations Up to Date: No - Review of Systems Constitutional: No Fever, No Chills Eyes: Discharge, Eye Pain Ears, Nose, & Throat: No Symptoms Respiratory: No Cough, No Dyspnea Cardiac: No Chest Pain, No Edema, No Syncope Abdominal/Gastrointestinal: No Abdominal Pain, No Nausea, No Vomiting, No Diarrhea Genitourinary Symptoms: No Dysuria Musculoskeletal: No Back Pain, No Neck Pain Skin: No Rash Neurological: No Dizziness, No Focal Weakness, No Sensory Changes Psychological: No Symptoms Endocrine: No Symptoms All Other Systems: Reviewed and Negative - Past Medical History Pertinent Past Medical History: Yes Neurological History: No Pertinent History ENT History: No Pertinent History Cardiac History: No Pertinent History Respiratory History: No Pertinent History Endocrine Medical History: No Pertinent History Musculoskeletal History: Fractures GI Medical History: No Pertinent History History: No Pertinent History Psycho-Social History: No Pertinent History Female Reproductive Disorders: Cervical Cancer Other Medical History: Cervical Dysplasia - Past Surgical History Past Surgical History: Yes Gastrointestinal: Cholecystectomy, Hernia Repair Musculoskeletal: Orthopedic Surgery Female Surgical History: Other - Social History Smoking Status: Current every day smoker How long have you smoked: 0.5 Exposure to second hand smoke: No Drug Use: none Patient Lives Alone: No - Female History Hx Last Menstrual Period: currently Hx Now: No - Nursing Vital Signs Nursing Vital Signs: Initial Vital Signs Temperature 98.6 F 03/04/18 20:09 Pulse Rate 102 H 03/04/18 20:09 Respiratory Rate 18 03/04/18 20:09 Blood Pressure 118/82 03/04/18 20:09 O2 Sat by Pulse Oximetry 99 03/04/18 20:09 Pain Scale Pain Intensity 8 - Physical Exam General Appearance: mild distress Vision Acuity Degree Evaluation Phase: Uncorrected Vision Acuity Right Eye: 20/200 Vision Acuity Left Eye: 20/100 Eye Exam: right eye: other (right eye slight erythema conjunctiva , sclera white , fundi unremarkable, no obvious foreign bodies,), left eye: normal inspection, bilateral eye: PERRL, EOMI Ears, Nose, Throat Exam: normal ENT inspection Neck Exam: normal inspection Respiratory Exam: normal breath sounds Cardiovascular Exam: regular rate/rhythm Gastrointestinal Exam: soft, normal bowel sounds, No tenderness, No distention, No mass, No guarding, No rebound Neurologic: alert, oriented x 3, cooperative, embroidery patternmaker II-XII nml as tested, normal mood/affect, nml cerebellar function, sensation nml, No motor deficits, No sensory deficit Skin Exam: normal color SpO2 Interpretation: normal (99%) SpO2: 99 Oxygen Delivery: Room Air - Course Nursing assessment & vital signs reviewed: Yes Ordered Tests: Active Orders 24 hr Category Date Time Status Visual Acuity STAT Care 03/04/18 20:21 Active Medication Summary Discontinued Medications Generic Name Dose Route Start Last Admin Trade Name Jewell PRN Reason Stop Dose Admin Eye Irrigation Solution 15 ml 03/04/18 20:26 03/04/18 20:27 Eye-Stream Solution OP 03/04/18 20:27 15 ml STAT ONE Administration Eye Irrigation Solution Confirm 03/04/18 20:25 Eye-Stream Solution Administered 03/04/18 20:26 Dose 30 ml .ROUTE .STK-MED ONE Fluorescein Sodium 1 mg 03/04/18 20:21 03/04/18 20:25 Pfbod-G-Pitqk/Ful-Albaro OP 09/12/18 20:22 1 mg STAT ONE Administration Fluorescein Sodium Confirm 03/04/18 20:25 Qvcfc-R-Ozyrp/Ful-Albaro Administered 03/04/18 20:26 Dose 1 mg OP .STK-MED ONE Tetracaine HCl 4 ml 03/04/18 20:21 03/04/18 20:25 Tetracaine 0.5% Steri-Unit Jocelyn OP 03/04/18 20:22 4 ml STAT STA Administration Tetracaine HCl Confirm 03/04/18 20:24 Tetracaine 0.5% Steri-Unit Jocelyn Administered 03/04/18 20:25 Dose 4 ml OP .STK-MED ONE - Progress Progress: improved Progress Note: 03/04/18 20:39 22-year-old white female arrives with complaint of pain and drainage of her right eye symptoms for 3 days she states she feels like there is a foreign body in her right eye. On physical examination eyes PERRLA EOMI fundi are unremarkable sclera white right conjunctiva is somewhat erythematous . Fundi are unremarkable. Both globes are soft Vision examination per the patient's nurse 20/100 left eye 20/200 right eye uncorrected. Patient states she is supposed to wear glasses but does not. Right eye anesthetized with 0.5% tetracaine. Cotton tip applicator used to mickie the patient's right upper eyelid no foreign bodies noted no foreign bodies noted in under right lower eyelid. Right eye stain with floor seen no corneal abrasions noted. Right eye rinsed with sterile eyewash solution. Will Have Nurse Pl., Ciloxan drops 0.3% in patient's right eye patient is to continue Ciloxan drops 1-2 drops right eye 4 times a day for 5 days. Will give patient a very small amount of [place] for pain. She denies any problems with narcotics. Will give patient off work tomorrow (patient has conjunctivitis) - Departure Time of Disposition: 20:42 Departure Disposition: Home Clinical Impression: Acute right eye pain, foreign body sensation right eye Conjunctivitis, right eye Qualifiers: Conjunctivitis type: acute Acute conjunctivitis type: unspecified Qualified Code(s): H10.31 - Unspecified acute conjunctivitis, right eye Condition: Fair Critical Care Time: No Referrals: CHUCK ABEL MD [Primary Care Provider] - Additional Instructions: Return home. Ciloxan drops 0.3% one to 2 drops right eye 4 times a day for 5 days. [place] as directed. Follow-up with your family doctor, director dance, her web content producer if symptoms no better in 24 hours, becomes worse, or persist longer than 48 hours. Return for acute distress or for severe symptoms. Prescriptions: Hydrocodone/Acetaminophen [[place] 5-325 Tablet] 1 tab PO Q4-6HPRN PRN #7 tablet MDD 6 tablets PRN Reason: Pain
[2018-03-04] MEDS ORDERED: Ciloxan OPHTH OP ONE (20:38)
[2018-03-04] MEDS ORDERED: Ciloxan OPHTH ONE (20:43)
[2018-03-04 20:54] VITALS: BP 116/70; PULSE 85
== END 2018-03-04 20:54 | disposition home or self-care (01) ==
LOC: ED 20:01
DX: H57.11 Ocular pain, right eye (principal); H10.9 Unspecified conjunctivitis
CPT/HCPCS: 99283; A9270-GY

== ENCOUNTER 2018-03-06 19:36 | Emergency (ER) | payer OTHER ==
--- NOTE | 2018-03-06 20:31 | ERPHSYRPT ---
- History of Present Illness Time Seen by Provider: 03/06/18 20:15 Source: patient Exam Limitations: no limitations Patient Subjective Stated Complaint: eye swelling and pain, feels like something is in it Triage Nursing Assessment: Pt complains of pain in right eye, was here yesterday and was diagnosed with conjunctivitis, stated that she woke up today and eye was matted closed and it still feels like something is in there, eye is red and swollen Physician History: 22 y/o white female returns to ER with concerns of persistent right eye redness and fb sensation. pt seen in this ER 48 hours ago for same sx. pt underwent tetracaine/fluorescein examination and given rx for cipro eye drops and norco pain meds. pts right eye was matted this am Timing/Duration: day(s) (2) Location: right eye Severity: mild Apparent Injury: no Associated Symptoms: burning, redness, matting Visual Assistive Devices: None Allergies/Adverse Reactions: clarithromycin [From Biaxin] Allergy (Verified 03/06/18 19:56) Rash Hx Tetanus, Diphtheria Vaccination/Date Given: Yes Hx Influenza Vaccination/Date Given: No Hx Pneumococcal Vaccination/Date Given: No Immunizations Up to Date: Yes - Review of Systems Constitutional: No Symptoms, No Fever Eyes: Eye Redness (mild on right), Foreign Body Sensation Ears, Nose, & Throat: No Symptoms, No Ear Pain, No Nose Pain, No Nose Congestion , No Nose Discharge Respiratory: No Symptoms, Cough, No Dyspnea, No Dyspnea on Exertion (CASTANEDA), No Stridor, No Wheezing Cardiac: No Symptoms, No Chest Pain, No Palpitations, No Syncope Abdominal/Gastrointestinal: No Symptoms, No Abdominal Pain, No Nausea, No Vomiting, No Diarrhea Genitourinary Symptoms: No Symptoms, No Dysuria, No Frequency, No Hematuria Musculoskeletal: No Symptoms Skin: No Symptoms Neurological: No Symptoms Psychological: No Symptoms Endocrine: No Symptoms Hematologic/Lymphatic: No Symptoms Immunological/Allergic: No Symptoms All Other Systems: Reviewed and Negative - Past Medical History Pertinent Past Medical History: Yes Neurological History: No Pertinent History ENT History: No Pertinent History Cardiac History: No Pertinent History Respiratory History: No Pertinent History Endocrine Medical History: No Pertinent History Musculoskeletal History: Fractures GI Medical History: No Pertinent History History: No Pertinent History Psycho-Social History: No Pertinent History Female Reproductive Disorders: Cervical Cancer Other Medical History: Cervical Dysplasia - Past Surgical History Past Surgical History: Yes Gastrointestinal: Cholecystectomy, Hernia Repair Musculoskeletal: Orthopedic Surgery Female Surgical History: Other - Social History Smoking Status: Current every day smoker How long have you smoked: 0.5 Exposure to second hand smoke: No Drug Use: none Patient Lives Alone: No - Female History Hx Last Menstrual Period: 02/28/2018 Hx Now: No - Nursing Vital Signs Nursing Vital Signs: Initial Vital Signs Temperature 98.6 F 03/06/18 19:46 Pulse Rate 82 03/06/18 19:46 Blood Pressure 91/62 03/06/18 19:46 O2 Sat by Pulse Oximetry 98 03/06/18 19:46 Pain Scale Pain Intensity 2 - Physical Exam General Appearance: no apparent distress, alert, anxiety Vision Acuity Degree Evaluation Phase: Uncorrected Vision Acuity Right Eye: couldn't see top letter Vision Acuity Left Eye: 20/70 Eye Exam: right eye: PERRL, EOMI, conjunctival inflammation (mild), left eye: normal inspection Ears, Nose, Throat Exam: normal ENT inspection, moist mucous membranes Neck Exam: normal inspection, non-tender, supple, full range of motion Respiratory Exam: normal breath sounds, lungs clear, airway intact, No chest tenderness, No respiratory distress, No accessory muscle use, No rhonchi, No wheezing, No stridor Cardiovascular Exam: regular rate/rhythm, normal heart sounds, normal peripheral pulses Gastrointestinal Exam: soft, normal bowel sounds, No tenderness, No guarding, No rebound Extremity Exam: normal inspection, normal range of motion, pelvis stable Neurologic: alert, cooperative, international project manager II-XII nml as tested Skin Exam: normal color, warm, dry Lymphatic: adenopathy SpO2 Interpretation: normal SpO2: 98 Oxygen Delivery: Room Air - Course Nursing assessment & vital signs reviewed: Yes Ordered Tests: Medication Summary Discontinued Medications Generic Name Dose Route Start Last Admin Trade Name Freq PRN Reason Stop Dose Admin Prednisone 20 mg 03/06/18 20:32 Deltasone 20 Mg PO 03/06/18 20:33 STAT ONE - Progress Progress: unchanged Counseled pt/family regarding: diagnosis, need for follow-up - Departure Time of Disposition: 20:40 Departure Disposition: Home Clinical Impression: Conjunctivitis Condition: Stable Critical Care Time: No Referrals: CHUCK ABEL MD [Primary Care Provider] - Additional Instructions: continue antibiotic eye drops as prescribed. continue pain medications as prescribed. rinse and moisturize right eye prior to each eye drop use. warm compresses to eye each morning as needed. follow up with ophthamalogist on if symptoms not improved. Prescriptions: Prednisone 10 mg [Deltasone 10 mg] 10 mg PO BID #8 tablet
[2018-03-06] MEDS ORDERED: DELTASONE 20 MG PO ONE (20:32)
[2018-03-06] MEDS ORDERED: DELTASONE 20 MG ONE (20:39)
[2018-03-06 20:57] VITALS: BP 129/75; PULSE 86; O2SAT 99
== END 2018-03-06 20:56 | disposition home or self-care (01) ==
LOC: ED 19:36
DX: H10.9 Unspecified conjunctivitis (principal)
CPT/HCPCS: 99283; A9270-GY

== ENCOUNTER 2018-05-07 13:03 | Emergency (ER) | payer OTHER ==
[2018-05-07 13:17] VITALS: O2SAT 98
[2018-05-07] MEDS ORDERED: Sodium Chloride 0.9% 1000 ML 1,000 ML IV STA (13:23)
--- NOTE | 2018-05-07 13:27 | ERPHSYRPT ---
- History of Present Illness Time Seen by Provider: 05/07/18 13:24 Source: patient Patient Subjective Stated Complaint: Pt states "I was at work yesterday and I almost passed out. Today I was in the bathroom and I almost passed out again. I have just been weak all over." Triage Nursing Assessment: Pt alert and oriented X 3, skin pwd. Pt ambulates with an upright steady gait, able to speak in clear full sentences. Pt in no apprent respiratory distress. Physician History: mild to mod off and on dizzy for one day, no loc, no injury, no pain, general weakness no fever Allergies/Adverse Reactions: clarithromycin [From Biaxin] Allergy (Verified 03/06/18 19:56) Rash Home Medications: No Reportable Medications [No Reported Medications] 05/07/18 [History] Hx Tetanus, Diphtheria Vaccination/Date Given: Yes Hx Influenza Vaccination/Date Given: No Hx Pneumococcal Vaccination/Date Given: No Immunizations Up to Date: Yes - Review of Systems Constitutional: Weakness, No Fever Eyes: No Vision Changes Ears, Nose, & Throat: No Nose Congestion Respiratory: No Cough, No Dyspnea Cardiac: No Chest Pain Abdominal/Gastrointestinal: No Abdominal Pain, No Vomiting Genitourinary Symptoms: No Dysuria Musculoskeletal: No Back Pain, No Neck Pain Skin: No Rash Neurological: Dizziness, No Focal Weakness, No Headache, No Speech Changes - Past Medical History Pertinent Past Medical History: Yes Neurological History: No Pertinent History ENT History: No Pertinent History Cardiac History: No Pertinent History Respiratory History: No Pertinent History Endocrine Medical History: No Pertinent History Musculoskeletal History: Fractures GI Medical History: No Pertinent History History: No Pertinent History Psycho-Social History: No Pertinent History Female Reproductive Disorders: Cervical Cancer Other Medical History: Cervical Dysplasia - Past Surgical History Past Surgical History: Yes Gastrointestinal: Cholecystectomy, Hernia Repair Musculoskeletal: Orthopedic Surgery Female Surgical History: Other - Social History Smoking Status: Current every day smoker How long have you smoked: 6 months Exposure to second hand smoke: Yes Drug Use: none Patient Lives Alone: No - Female History Hx Last Menstrual Period: 05/02/2018 Hx Now: No - Nursing Vital Signs Nursing Vital Signs: Initial Vital Signs Temperature 98.5 F 05/07/18 13:07 Pulse Rate 88 05/07/18 13:07 Respiratory Rate 16 05/07/18 13:07 Blood Pressure 121/63 05/07/18 13:07 O2 Sat by Pulse Oximetry 98 05/07/18 13:07 Pain Scale Pain Intensity 4 - Physical Exam General Appearance: no apparent distress Eye Exam: eyes nml inspection Ears, Nose, Throat Exam: moist mucous membranes Neck Exam: normal inspection Respiratory Exam: normal breath sounds Cardiovascular Exam: regular rate/rhythm Gastrointestinal/Abdomen Exam: No tenderness Extremity Exam: normal inspection Neurologic Exam: alert, oriented x 3, cooperative Skin Exam: warm, dry SpO2 Interpretation: normal SpO2: 98 Oxygen Delivery: Room Air - Course Nursing assessment & vital signs reviewed: Yes EKG Interpreted by Me: Other (nsr 78) - CT Exams Head CT Interpretation: Discussed w/radiologist, Other (nap) Ordered Tests: Active Orders 24 hr Category Date Time Status EKG-ER Only STAT Care 05/07/18 13:23 Active IV Insertion STAT Care 05/07/18 13:23 Active Orthostatic Vital Signs STAT Care 05/07/18 15:53 Active HEAD WITHOUT CONTRAST [CT] Stat Exams 05/07/18 13:23 Completed CBC W DIFF Stat Lab 05/07/18 13:30 Completed CMP Stat Lab 05/07/18 13:30 Completed HCG,QUALITATIVE URINE Stat Lab 05/07/18 13:30 Completed Urine Triage Profile Stat Lab 05/07/18 13:30 Completed Medication Summary Discontinued Medications Generic Name Dose Route Start Last Admin Trade Name Jewell PRN Reason Stop Dose Admin Sodium Chloride 1,000 mls @ 999 mls/hr 05/07/18 13:23 05/07/18 14:50 Sodium Chloride 0.9% 1000 Ml IV 05/07/18 14:23 Infused .Q1H1M STA Infusion Sodium Chloride Confirm 05/07/18 13:35 Sodium Chloride 0.9% 1000 Ml Administered 05/07/18 13:36 Dose 1,000 mls @ ud .ROUTE .STK-MED ONE Lab/Rad Data: Laboratory Result Diagrams 05/07/18 13:30 05/07/18 13:30 Laboratory Results 05/07/18 05/07/18 05/07/18 Range/Units 13:30 13:30 13:30 WBC (4.0-10.5) K/mm3 RBC (4.1-5.4) M/mm3 Hgb (12.0-16.0) gm/dl Hct (35-47) % MCV (78-100) fl MCH (26-32) pg MCHC (32-36) g/dl RDW (11.5-14.0) % Plt Count (150-450) K/mm3 MPV (6-9.5) fl Gran % (36.0-66.0) % Eos # (Auto) (0-0.5) Absolute Lymphs (auto) (1.0-4.6) Absolute Monos (auto) (0.0-1.3) Lymphocytes % (24.0-44.0) % Monocytes % (0.0-12.0) % Eosinophils % (0.00-5.0) % Basophils % (0.0-0.4) % Absolute Granulocytes (1.4-6.9) Basophils # (0-0.4) Sodium 140 (137-145) mmol/L Potassium 4.1 (3.5-5.1) mmol/L Chloride 103 (98-107) mmol/L Carbon Dioxide 27 (22-30) mmol/L Anion Gap 13.9 (5-15) MEQ/L BUN 12 (7-17) mg/dL Creatinine 0.77 (0.52-1.04) mg/dL Estimated GFR > 60.0 ML/MIN Glucose 95 (74-106) mg/dL Calcium 9.6 (8.4-10.2) mg/dL Total Bilirubin 0.40 (0.2-1.3) mg/dL AST 55 H (14-36) U/L ALT 55 H (0-35) U/L Alkaline Phosphatase 39 (38-126) U/L Serum Total Protein 8.7 H (6.3-8.2) g/dL Albumin 4.6 (3.5-5.0) g/dL Urine HCG, Qual NEGATIVE (Negative) Urine Opiates Level NEGATIVE (NEGATIVE) Ur Methadone NEGATIVE (NEGATIVE) Urine Barbiturates NEGATIVE (NEGATIVE) Ur Phencyclidine (PCP) NEGATIVE (NEGATIVE) Urine Amphetamine NEGATIVE (NEGATIVE) U Benzodiazepine Level NEGATIVE (NEGATIVE) Urine Cocaine NEGATIVE (NEGATIVE) Urine Marijuana (THC) POSITIVE (NEGATIVE) 05/07/18 Range/Units 13:30 WBC 4.8 (4.0-10.5) K/mm3 RBC 5.18 (4.1-5.4) M/mm3 Hgb 12.8 (12.0-16.0) gm/dl Hct 39.8 (35-47) % MCV 76.8 L (78-100) fl MCH 24.7 L (26-32) pg MCHC 32.2 (32-36) g/dl RDW 16.8 H (11.5-14.0) % Plt Count 347 (150-450) K/mm3 MPV 9.7 H (6-9.5) fl Gran % 55.6 (36.0-66.0) % Eos # (Auto) 0.21 (0-0.5) Absolute Lymphs (auto) 1.55 (1.0-4.6) Absolute Monos (auto) 0.37 (0.0-1.3) Lymphocytes % 32.3 (24.0-44.0) % Monocytes % 7.7 (0.0-12.0) % Eosinophils % 4.4 (0.00-5.0) % Basophils % 0.0 (0.0-0.4) % Absolute Granulocytes 2.67 (1.4-6.9) Basophils # 0 (0-0.4) Sodium (137-145) mmol/L Potassium (3.5-5.1) mmol/L Chloride (98-107) mmol/L Carbon Dioxide (22-30) mmol/L Anion Gap (5-15) MEQ/L BUN (7-17) mg/dL Creatinine (0.52-1.04) mg/dL Estimated GFR ML/MIN Glucose (74-106) mg/dL Calcium (8.4-10.2) mg/dL Total Bilirubin (0.2-1.3) mg/dL AST (14-36) U/L ALT (0-35) U/L Alkaline Phosphatase (38-126) U/L Serum Total Protein (6.3-8.2) g/dL Albumin (3.5-5.0) g/dL Urine HCG, Qual (Negative) Urine Opiates Level (NEGATIVE) Ur Methadone (NEGATIVE) Urine Barbiturates (NEGATIVE) Ur Phencyclidine (PCP) (NEGATIVE) Urine Amphetamine (NEGATIVE) U Benzodiazepine Level (NEGATIVE) Urine Cocaine (NEGATIVE) Urine Marijuana (THC) (NEGATIVE) - Progress Progress: improved Progress Note: 05/07/18 16:04 pt aox3, nad, refused diagnostic spinal tap to exclude a brain bleed or infection - Departure Time of Disposition: 16:04 Departure Disposition: Home Clinical Impression: Dizziness Condition: Stable Critical Care Time: No Referrals: CHUCK ABEL MD [Primary Care Provider] - Instructions: Muscle Weakness Additional Instructions: oral fluids, tylenol, rest, see your doctor, return if worse
[2018-05-07] MEDS ORDERED: Sodium Chloride 0.9% 1000 ML 1,000 ML ONE (13:35)
[2018-05-07 13:37] LABS: Basophil (Absolute #) 0 (0-0.4); Eosinophil % 4.4 % (0.00-5.0); Eosinophil (Absolute #) 0.21 (0-0.5); Granulocyte Absolute (ANC) 2.67 (1.4-6.9); Granulocytes % 55.6 % (36.0-66.0); Hematocrit 39.8 % (35-47); Hemoglobin 12.8 gm/dl (12.0-16.0); Lymphocyte (Absolute #) 1.55 (1.0-4.6); Lymphocytes % 32.3 % (24.0-44.0); Mean Cell Volume 76.8 fl (78-100); Mean Corpuscular Hemoglobin 24.7 pg (26-32); Mean Corpuscular Hgb Concent. 32.2 g/dl (32-36); Mean Platelet Volume 9.7 fl (6-9.5); Monocyte (Absolute #) 0.37 (0.0-1.3); Monocytes % 7.7 % (0.0-12.0); Platelet Count 347 K/mm3 (150-450); Red Blood Count 5.18 M/mm3 (4.1-5.4); Red Cell Distribution Width 16.8 % (11.5-14.0); White Blood Count 4.8 K/mm3 (4.0-10.5)
[2018-05-07 13:53] LABS: ALBUMIN 4.6 g/dL (3.5-5.0); ALKALINE PHOSPHATASE 39 U/L (38-126); ANION GAP 13.9 MEQ/L (5-15); BLOOD UREA NITROGEN 12 mg/dL (7-17); CHLORIDE 103 mmol/L (98-107); Calcium 9.6 mg/dL (8.4-10.2); Carbon Dioxide 27 mmol/L (22-30); Creatinine 1 0.77 mg/dL (0.52-1.04); Glucose 95 mg/dL (74-106); Potassium 4.1 mmol/L (3.5-5.1); SGOT/AST 55 U/L (14-36); SGPT/ALT 55 U/L (0-35); SODIUM 140 mmol/L (137-145); Total Protein 8.7 g/dL (6.3-8.2)
[2018-05-07 13:59] LABS: Amphetamine,Urine NEGATIVE (NEGATIVE); Barbiturate,Urine NEGATIVE (NEGATIVE); Benzodiazepine,Urine NEGATIVE (NEGATIVE); Cocaine,Urine NEGATIVE (NEGATIVE); Methadone,Urine NEGATIVE (NEGATIVE); Opiate,Urine NEGATIVE (NEGATIVE); PCP,Urine NEGATIVE (NEGATIVE); THC,Urine POSITIVE (NEGATIVE)
--- NOTE | 2018-05-07 14:19 | XRAY ---
Indication: Dizziness. Multiple contiguous axial images obtained through the head without contrast. Comparison: May 18, 2017. Again normal appearing brain parenchyma, ventricles, and bony calvarium. Visualized paranasal sinuses and mastoid air cells are clear. Impression: Stable normal CT head without contrast exam. CTDI 70.00
[2018-05-07 16:03] VITALS: BP 113/80; PULSE 82
== END 2018-05-07 16:19 | disposition home or self-care (01) ==
LOC: ED 13:03
DX: R42 Dizziness and giddiness (principal); R53.1 Weakness
CPT/HCPCS: 36000; 36415; 70450; 80053; 80307; 84703; 85025; 93005; 96360; 96374; 99284

== ENCOUNTER 2018-05-15 07:14 | Emergency (ER) | payer OTHER ==
[2018-05-15] MEDS ORDERED: Sodium Chloride 0.9% 1000 ML 1,000 ML IV STA (07:45)
--- NOTE | 2018-05-15 07:45 | ERPHSYRPT ---
- History of Present Illness Time Seen by Provider: 05/15/18 07:40 Source: patient Exam Limitations: no limitations Patient Subjective Stated Complaint: hard to breath and pain in left chest Triage Nursing Assessment: Pt c/o of dizziness while walking down stairs at home and landed on her bottom and slid down the stairs, left chest hurting, pain on insperation and at the end of expiration, denies pain with palpatation, vitals wnl, pulses normal, afebrile, rates pain 12/30, was here approx. 1 week ago for syncope Physician History: pt had syncopal episode one week ago with negative workup here, and another near syncopal today , sliding down stairs without impact ot LOC; some resp symptoms like cold this week, no abd pain or N/V, nofever. has sharp pleuritic pain with deep breath but no other CP, but some SObreath now ; no neuro deficits or headaches - no blood thinners or dyscrasias; no hx DVT or PE, no recent hosp or hormone use pt PERCs out and heart score is less than 3 ( pos family hx = 1 , normal EKG = 0 , no risk factors (no hptn, no personal ht dx, no Diabetes, no elevated cholest known) = 0 ; Timing/Duration: today Cough Quality/Degree: mild, dry cough Possible Cause: occasional episodes Modifying Factors: Improves With: nothing Associated Symptoms: chest pain/soreness, nasal congestion, shortness of breath Allergies/Adverse Reactions: clarithromycin [From Biaxin] Allergy (Verified 05/15/18 07:30) Rash Hx Tetanus, Diphtheria Vaccination/Date Given: Yes Hx Influenza Vaccination/Date Given: No Hx Pneumococcal Vaccination/Date Given: No - Review of Systems Constitutional: No Fever, No Chills Eyes: No Symptoms Ears, Nose, & Throat: Nose Congestion Respiratory: Cough, Dyspnea Cardiac: Chest Pain, No Edema, No Syncope Abdominal/Gastrointestinal: No Abdominal Pain, No Nausea, No Vomiting, No Diarrhea Genitourinary Symptoms: No Dysuria Musculoskeletal: No Back Pain, No Neck Pain Skin: No Rash Neurological: No Dizziness, No Focal Weakness, No Sensory Changes Psychological: No Symptoms Endocrine: No Symptoms Hematologic/Lymphatic: No Symptoms Immunological/Allergic: No Symptoms All Other Systems: Reviewed and Negative - Past Medical History Pertinent Past Medical History: Yes Neurological History: No Pertinent History ENT History: No Pertinent History Cardiac History: No Pertinent History Respiratory History: No Pertinent History Endocrine Medical History: No Pertinent History Musculoskeletal History: Fractures GI Medical History: No Pertinent History History: No Pertinent History Psycho-Social History: No Pertinent History Female Reproductive Disorders: Cervical Cancer Other Medical History: Cervical Dysplasia - Past Surgical History Past Surgical History: Yes Gastrointestinal: Cholecystectomy, Hernia Repair Musculoskeletal: Orthopedic Surgery Female Surgical History: Other - Social History Smoking Status: Current every day smoker How long have you smoked: 6 months Exposure to second hand smoke: Yes Drug Use: none Patient Lives Alone: No - Female History Hx Now: No - Nursing Vital Signs Nursing Vital Signs: Initial Vital Signs Temperature 97.9 F 05/15/18 07:20 Pulse Rate 74 05/15/18 07:20 Blood Pressure 113/56 05/15/18 07:20 O2 Sat by Pulse Oximetry 100 05/15/18 07:20 Pain Scale Pain Intensity 7 - Physical Exam General Appearance: no apparent distress, alert Eye Exam: PERRL/EOMI, eyes nml inspection Ears, Nose, Throat Exam: normal ENT inspection, TMs normal, pharynx normal, moist mucous membranes Neck Exam: normal inspection, non-tender, supple, full range of motion Respiratory Exam: normal breath sounds, lungs clear, No respiratory distress Cardiovascular Exam: regular rate/rhythm, normal heart sounds Gastrointestinal/Abdomen Exam: soft, No tenderness Back Exam: normal inspection, No CVA tenderness, No vertebral tenderness Extremity Exam: normal inspection, normal range of motion Neurologic Exam: alert, oriented x 3, cooperative, normal mood/affect, sensation nml, No motor deficits Skin Exam: normal color, warm, dry, No rash Lymphatic Exam: No adenopathy SpO2 Interpretation: normal SpO2: 100 Oxygen Delivery: Room Air - Course Nursing assessment & vital signs reviewed: Yes EKG Interpreted by Me: Sinus Rhythm, NORMAL AXIS, NORMAL INTERVALS, NORMAL QRS, NORMAL ST-T - Radiology Exams Chest X-ray Interpretation: Reviewed by me, Teleradiologist Report, No Pneumothorax, No Infiltrates, Other (few scattered granulomata) Ordered Tests: Active Orders 24 hr Category Date Time Status Camera Systems Engineer STAT Care 05/15/18 07:48 Active EKG-ER Only STAT Care 05/15/18 07:45 Active IV Insertion STAT Care 05/15/18 07:45 Active Pulse Oximetry (ED) STAT Care 05/15/18 07:45 Active CHEST 2 VIEWS (PA AND LAT) Stat Exams 05/15/18 07:46 Completed CBC W DIFF Stat Lab 05/15/18 07:55 Completed CMP Stat Lab 05/15/18 07:55 Completed HCG QUALITATIVE,SERUM Stat Lab 05/15/18 07:55 Completed LIPASE Stat Lab 05/15/18 07:55 Completed Lactic Acid Stat Lab 05/15/18 07:57 Completed TROPONIN Q3H Lab 05/15/18 07:55 Completed TROPONIN Q3H Lab 05/15/18 11:00 Ordered TROPONIN Q3H Lab 05/15/18 14:00 Ordered TROPONIN Q3H Lab 05/15/18 17:00 Ordered TROPONIN Q3H Lab 05/15/18 20:00 Ordered Medication Summary Discontinued Medications Generic Name Dose Route Start Last Admin Trade Name Freq PRN Reason Stop Dose Admin Sodium Chloride 1,000 mls @ 999 mls/hr 05/15/18 07:45 05/15/18 08:04 Sodium Chloride 0.9% 1000 Ml IV 05/15/18 08:45 999 mls/hr .Q1H1M STA Administration Sodium Chloride Confirm 05/15/18 08:01 Sodium Chloride 0.9% 1000 Ml Administered 05/15/18 08:02 Dose 1,000 mls @ ud .ROUTE .STK-MED ONE Ketorolac Tromethamine 30 mg 05/15/18 08:26 05/15/18 08:31 Toradol 30 Mg Injection IV 05/15/18 08:27 30 mg STAT ONE Administration Ketorolac Tromethamine Confirm 05/15/18 08:30 Toradol 30 Mg Injection Administered 05/15/18 08:31 Dose 30 mg .ROUTE .STK-MED ONE Lab/Rad Data: Laboratory Result Diagrams 05/15/18 07:55 05/15/18 07:55 Laboratory Results 05/15/18 05/15/18 05/15/18 Range/Units 07:57 07:55 07:55 WBC (4.0-10.5) K/mm3 RBC (4.1-5.4) M/mm3 Hgb (12.0-16.0) gm/dl Hct (35-47) % MCV (78-100) fl MCH (26-32) pg MCHC (32-36) g/dl RDW (11.5-14.0) % Plt Count (150-450) K/mm3 MPV (6-9.5) fl Gran % (36.0-66.0) % Eos # (Auto) (0-0.5) Absolute Lymphs (auto) (1.0-4.6) Absolute Monos (auto) (0.0-1.3) Lymphocytes % (24.0-44.0) % Monocytes % (0.0-12.0) % Eosinophils % (0.00-5.0) % Basophils % (0.0-0.4) % Absolute Granulocytes (1.4-6.9) Basophils # (0-0.4) Sodium (137-145) mmol/L Potassium (3.5-5.1) mmol/L Chloride (98-107) mmol/L Carbon Dioxide (22-30) mmol/L Anion Gap (5-15) MEQ/L BUN (7-17) mg/dL Creatinine (0.52-1.04) mg/dL Estimated GFR ML/MIN Glucose (74-106) mg/dL Lactic Acid 1.4 (0.4-2.0) Calcium (8.4-10.2) mg/dL Total Bilirubin (0.2-1.3) mg/dL AST (14-36) U/L ALT (0-35) U/L Alkaline Phosphatase (38-126) U/L Troponin I (0.000-0.034) ng/mL Serum Total Protein (6.3-8.2) g/dL Albumin (3.5-5.0) g/dL Lipase (23-300) U/L Serum , Qual NEGATIVE (Negative) Influenza Type A Ag NEGATIVE (NEGATIVE) Influenza Type B Ag NEGATIVE (NEGATIVE) RSV (PCR) NEGATIVE (Negative) 05/15/18 05/15/18 05/15/18 Range/Units 07:55 07:55 07:55 WBC 3.9 L (4.0-10.5) K/mm3 RBC 5.11 (4.1-5.4) M/mm3 Hgb 12.5 (12.0-16.0) gm/dl Hct 39.7 (35-47) % MCV 77.7 L (78-100) fl MCH 24.5 L (26-32) pg MCHC 31.5 L (32-36) g/dl RDW 16.8 H (11.5-14.0) % Plt Count 321 (150-450) K/mm3 MPV 10.2 H (6-9.5) fl Gran % 54.0 (36.0-66.0) % Eos # (Auto) 0.19 (0-0.5) Absolute Lymphs (auto) 1.27 (1.0-4.6) Absolute Monos (auto) 0.31 (0.0-1.3) Lymphocytes % 32.8 (24.0-44.0) % Monocytes % 8.0 (0.0-12.0) % Eosinophils % 4.9 (0.00-5.0) % Basophils % 0.3 (0.0-0.4) % Absolute Granulocytes 2.09 (1.4-6.9) Basophils # 0.01 (0-0.4) Sodium 139 (137-145) mmol/L Potassium 4.2 (3.5-5.1) mmol/L Chloride 106 (98-107) mmol/L Carbon Dioxide 24 (22-30) mmol/L Anion Gap 13.4 (5-15) MEQ/L BUN 11 (7-17) mg/dL Creatinine 0.51 L (0.52-1.04) mg/dL Estimated GFR > 60.0 ML/MIN Glucose 101 (74-106) mg/dL Lactic Acid (0.4-2.0) Calcium 9.5 (8.4-10.2) mg/dL Total Bilirubin 0.20 (0.2-1.3) mg/dL AST 32 (14-36) U/L ALT 37 H (0-35) U/L Alkaline Phosphatase 39 (38-126) U/L Troponin I < 0.012 (0.000-0.034) ng/mL Serum Total Protein 8.4 H (6.3-8.2) g/dL Albumin 4.4 (3.5-5.0) g/dL Lipase 46 (23-300) U/L Serum , Qual (Negative) Influenza Type A Ag (NEGATIVE) Influenza Type B Ag (NEGATIVE) RSV (PCR) (Negative) - Progress Progress: improved, re-examined Air Movement: good Progress Note: 05/15/18 09:16 pt symptoms have resolved - no further dizziness and pain is going away; pt advised of limitations of testing performed in this setting and that undetected pathology including cardiac, neuro and other may still be evolving; discussed possible causes with pt including cardiac , neuro and other and risks/ benefits of w/u in hosp versus DC and outpt workup. Pt chooses DC with outpt w/ u and has the capacity to make this choice and does not currently wish admission or further w/u in ER. 05/15/18 09:21 Blood Culture(s) Obtained: No Antibiotics given: No Counseled pt/family regarding: lab results, diagnosis, need for follow-up, rad results - Departure Time of Disposition: 09:19 Departure Disposition: Home Clinical Impression: Pleurisy, Dizziness Condition: Good Critical Care Time: No Referrals: CHUCK ABEL MD [Primary Care Provider] - Instructions: Dizziness, Nonvertigo, (DC), Pleuritic Chest Pain (DC), Near Fainting (DC) Additional Instructions: although we have not found any serious cause for your dizziness, there still may be undetected conditions that are developing, and require workup by your Dr. See your Dr. THOMAS for further testing , to consider echo of heart and/or heart monitoring, and a neuro referral to rule out potential causes for your symptoms. we will prescribe some short term steroids to help your pleurisy inflammation pain. Return meantime if any further symptoms or concerns. Prescriptions: Methylprednisolone Packet [Medrol Dosepack] 4 mg PO UD #30 packet
[2018-05-15] MEDS ORDERED: Sodium Chloride 0.9% 1000 ML 1,000 ML ONE (08:01)
[2018-05-15 08:06] LABS: BASOPHIL % 0.3 % (0.0-0.4); Basophil (Absolute #) 0.01 (0-0.4); Eosinophil % 4.9 % (0.00-5.0); Eosinophil (Absolute #) 0.19 (0-0.5); Granulocyte Absolute (ANC) 2.09 (1.4-6.9); Hematocrit 39.7 % (35-47); Hemoglobin 12.5 gm/dl (12.0-16.0); Lymphocyte (Absolute #) 1.27 (1.0-4.6); Lymphocytes % 32.8 % (24.0-44.0); Mean Cell Volume 77.7 fl (78-100); Mean Corpuscular Hemoglobin 24.5 pg (26-32); Mean Corpuscular Hgb Concent. 31.5 g/dl (32-36); Mean Platelet Volume 10.2 fl (6-9.5); Monocyte (Absolute #) 0.31 (0.0-1.3); Platelet Count 321 K/mm3 (150-450); Red Blood Count 5.11 M/mm3 (4.1-5.4); Red Cell Distribution Width 16.8 % (11.5-14.0); White Blood Count 3.9 K/mm3 (4.0-10.5)
[2018-05-15] MEDS ORDERED: TORAdol 30 mg Injection IV ONE (08:26)
[2018-05-15 08:27] LABS: ALBUMIN 4.4 g/dL (3.5-5.0); ALKALINE PHOSPHATASE 39 U/L (38-126); ANION GAP 13.4 MEQ/L (5-15); BLOOD UREA NITROGEN 11 mg/dL (7-17); CHLORIDE 106 mmol/L (98-107); Calcium 9.5 mg/dL (8.4-10.2); Carbon Dioxide 24 mmol/L (22-30); Creatinine 1 0.51 mg/dL (0.52-1.04); Glucose 101 mg/dL (74-106); LIPASE 46 U/L (23-300); Potassium 4.2 mmol/L (3.5-5.1); SGOT/AST 32 U/L (14-36); SGPT/ALT 37 U/L (0-35); SODIUM 139 mmol/L (137-145); Total Protein 8.4 g/dL (6.3-8.2)
[2018-05-15] MEDS ORDERED: TORAdol 30 mg Injection ONE (08:30)
--- NOTE | 2018-05-15 08:30 | XRAY ---
Indication: Short of breath. No known injury. Comparison: December 26, 2017. PA/lateral chest again demonstrates normal heart, lungs, and bony thorax.
[2018-05-15 08:43] LABS: INFLUENZA A NEGATIVE (NEGATIVE); INFLUENZA B NEGATIVE (NEGATIVE); RESPIRATORY SYNCTIAL VIRUS NEGATIVE (Negative)
[2018-05-15 09:08] VITALS: BP 105/58
[2018-05-15 09:40] VITALS: PULSE 77; O2SAT 98
== END 2018-05-15 09:40 | disposition home or self-care (01) ==
LOC: ED 07:14
DX: R09.1 Pleurisy (principal); R42 Dizziness and giddiness
CPT/HCPCS: 36415; 71046; 80053; 81025; 83605; 83690; 84484; 85025; 87631; 93005; 93041; 96360; 96374; 99284; J1885

== ENCOUNTER 2018-07-12 14:35 | Emergency (ER) | payer SELFPAY ==
[2018-07-12] MEDS ORDERED: AMOXIL 500 MG PO ONE (14:58)
[2018-07-12] MEDS ORDERED: AMOXIL 500 MG ONE (15:01)
--- NOTE | 2018-07-12 15:04 | ERPHSYRPT ---
- History of Present Illness Time Seen by Provider: 07/12/18 14:53 Source: patient Exam Limitations: no limitations Patient Subjective Stated Complaint: uri symptoms for one week and yesterday developed right earache. Triage Nursing Assessment: ambulated to room per self. skin w/d, color normal, resp easy. no drainage noted from left ear. Physician History: 23-year-old white female arrives with complaint of pain in her right ear since today She states she's had a recent upper respiratory infection and cough for couple weeks however today she began to have right ear pain. She states she has taken Advil for the pain. She has no nausea no vomiting. Past medical history includes cervical dysplasia past surgical history includes cholecystectomy hernia repair orthopedic surgery cervical conization. Social history positive for tobacco use patient denies alcohol or illicit drug use. . Timing/Duration: abrupt onset Severity: moderate ENT Location: ear (R) Prearrival Treatment: over the counter meds Modifying Factors: Improves With: nothing Associated Symptoms: ear pain (R), cough, nasal congestion/drainage, No ear pain (L), No fever, No chills, No change in hearing, No dizziness, No drooling, No ear drainage, No facial pain/swelling, No headache, No hearing loss, No jaw pain, No malaise, No motion sickness, No epistaxis, No nasal foreign body, No neck pain, No poor fluid intake, No poor solids intake, No ringing of ears, No swollen glands, No sinus infection, No sore throat, No tooth pain, No difficulty swallowing, No voice change Allergies/Adverse Reactions: clarithromycin [From Biaxin] Allergy (Verified 07/12/18 14:45) Rash Hx Tetanus, Diphtheria Vaccination/Date Given: No Hx Influenza Vaccination/Date Given: No Hx Pneumococcal Vaccination/Date Given: No - Review of Systems Constitutional: No Fever, No Chills Eyes: No Symptoms Ears, Nose, & Throat: Ear Pain (right ear pain), Nose Congestion, Sinus Drainage , No Ear Discharge, No Hearing Changes, No Tinnitus, No Nose Pain, No Nose Discharge, No Epistaxis, No Mouth Pain, No Mouth Swelling, No Loose Teeth, No Throat Pain, No Throat Swelling, No Hoarse, No Painful Swallowing, No Snoring Respiratory: Cough, No Dyspnea, No Dyspnea on Exertion (CASTANEDA), No Stridor, No Wheezing Cardiac: No Chest Pain, No Edema, No Syncope Abdominal/Gastrointestinal: No Abdominal Pain, No Nausea, No Vomiting, No Diarrhea Genitourinary Symptoms: No Dysuria Musculoskeletal: No Back Pain, No Neck Pain Skin: No Rash Neurological: No Dizziness, No Focal Weakness, No Sensory Changes Psychological: No Symptoms Endocrine: No Symptoms All Other Systems: Reviewed and Negative - Past Medical History Pertinent Past Medical History: Yes Neurological History: No Pertinent History ENT History: No Pertinent History Cardiac History: No Pertinent History Respiratory History: No Pertinent History Endocrine Medical History: No Pertinent History Musculoskeletal History: Fractures GI Medical History: No Pertinent History History: No Pertinent History Psycho-Social History: No Pertinent History Female Reproductive Disorders: Cervical Cancer Other Medical History: Cervical Dysplasia - Past Surgical History Past Surgical History: Yes Gastrointestinal: Cholecystectomy, Hernia Repair Musculoskeletal: Orthopedic Surgery Female Surgical History: Other - Social History Smoking Status: Current every day smoker How long have you smoked: 1 Exposure to second hand smoke: Yes Drug Use: none Patient Lives Alone: No - Female History Hx Last Menstrual Period: 06/23/18 Hx Now: (unsure) - Nursing Vital Signs Nursing Vital Signs: Initial Vital Signs Temperature 97.2 F 07/12/18 14:40 Pulse Rate 75 07/12/18 14:40 Respiratory Rate 16 07/12/18 14:40 Blood Pressure 144/96 07/12/18 14:40 O2 Sat by Pulse Oximetry 98 07/12/18 14:40 Pain Scale Pain Intensity 7 - Physical Exam General Appearance: no apparent distress, alert Eye Exam: bilateral eye: normal inspection, PERRL, EOMI Ear Exam: right ear: TM red, left ear: TM normal, bilateral ear: auricle normal , canal normal Nasal Exam: normal inspection Throat Exam: pharynx normal, moist mucus membranes, No tonsillar exudate Neck Exam: supple Cardiovascular/Respiratory Exam: normal breath sounds, regular rate/rhythm Abdominal Exam: non-tender, soft Neurologic Exam: alert, oriented x 3, sensation nml, No motor deficits Skin Exam: normal color, warm, dry SpO2 Interpretation: normal (98%) SpO2: 98 O2 Delivery: Room Air - Course Nursing assessment & vital signs reviewed: Yes Ordered Tests: Medication Summary Discontinued Medications Generic Name Dose Route Start Last Admin Trade Name Freq PRN Reason Stop Dose Admin Amoxicillin 500 mg 07/12/18 14:58 07/12/18 15:02 Amoxil 500 Mg PO 07/12/18 14:59 500 mg STAT ONE Administration - Progress Progress: improved Progress Note: 07/12/18 15:01 23-year-old white female arrives with complaint of right ear pain symptoms since today she states she's had nasal congestion and cough for approximately 2 weeks prior to onset of pain. Patient states she is taking Advil but still having pain in her right ear. She has no fevers no nausea no vomiting. On physical examination she has mild erythema to the right tympanic membrane. She does not appear to be in acute distress. Will go ahead and write for amoxicillin for this patient 500 mg orally 3 times a day for 10 days. Will have patient take Tylenol as well as needed for pain every 4 hours. - Departure Time of Disposition: 15:02 Departure Disposition: Home Clinical Impression: Right ear pain Right otitis media Qualifiers: Otitis media type: suppurative Chronicity: acute Recurrence: non-recurrent Spontaneous tympanic membrane rupture: without spontaneous rupture Qualified Code(s): H66.001 - Acute suppurative otitis media without spontaneous rupture of ear drum, right ear Condition: Fair Critical Care Time: No Referrals: CHUCK ABEL MD [Primary Care Provider] - Additional Instructions: Return home. Plenty of fluids. Tylenol every 4 hours as needed for pain. Amoxicillin 500 mg orally 3 times a day for 10 days. Follow-up with your family doctor if symptoms no better in 48 hours worse or persist longer than one week. Return for acute distress or for severe symptoms. Prescriptions: Amoxicillin 500 mg PO TID #30 capsule
[2018-07-12 15:27] VITALS: BP 140/94; PULSE 72; O2SAT 99
== END 2018-07-12 15:32 | disposition home or self-care (01) ==
LOC: ED 14:35
DX: H92.01 Otalgia, right ear (principal); Z85.41 Personal history of malignant neoplasm of cervix uteri; Z72.0 Tobacco use
CPT/HCPCS: 99283; A9270-GY

== ENCOUNTER 2018-11-30 02:18 | Emergency (ER) | payer OTHER ==
[2018-11-30] MEDS ORDERED: PROTONIX 40 MG IV IV ONE ×2 (03:30→03:35)
[2018-11-30] MEDS ORDERED: MORPHINE SULFATE 2 MG INJ IV ONE (03:30)
[2018-11-30] MEDS ORDERED: Zofran 4 MG/2 ML VIAL IV ONE (03:30)
[2018-11-30] MEDS ORDERED: Sodium Chloride 0.9% 1000 ML 1,000 ML IV STA (03:30)
[2018-11-30] MEDS ORDERED: Zofran 4 MG/2 ML VIAL ONE (03:35)
[2018-11-30] MEDS ORDERED: Sodium Chloride 0.9% 1000 ML 1,000 ML ONE (03:35)
[2018-11-30] MEDS ORDERED: MORPHINE SULFATE 2 MG INJ ONE (03:35)
[2018-11-30 03:41] VITALS: BP 121/84; PULSE 79; O2SAT 98
[2018-11-30 04:02] LABS: BASOPHIL % 0.1 % (0.0-0.4); Basophil (Absolute #) 0.01 (0-0.4); Eosinophil % 1.3 % (0.00-5.0); Granulocyte Absolute (ANC) 5.76 (1.4-6.9); Granulocytes % 73.2 % (36.0-66.0); Hematocrit 45.1 % (35-47); Hemoglobin 15.1 gm/dl (12.0-16.0); Lymphocyte (Absolute #) 1.63 (1.0-4.6); Lymphocytes % 20.7 % (24.0-44.0); Mean Cell Volume 79.1 fl (78-100); Mean Corpuscular Hgb Concent. 33.5 g/dl (32-36); Mean Platelet Volume 10.9 fl (6-9.5); Monocyte (Absolute #) 0.37 (0.0-1.3); Monocytes % 4.7 % (0.0-12.0); Platelet Count 306 K/mm3 (150-450); Red Cell Distribution Width 15.3 % (11.5-14.0); White Blood Count 7.9 K/mm3 (4.0-10.5)
[2018-11-30 04:06] LABS: Appearance CLEAR (CLEAR); Bilirubin NEGATIVE (NEGATIVE); Blood NEGATIVE Ery/ul (0-5); Epithelial Cells RARE /HPF (FEW); Glucose NEGATIVE (NEGATIVE); Ketones NEGATIVE (NEGATIVE); Leukocyte Esterase NEGATIVE (NEGATIVE); Nitrite NEGATIVE (NEGATIVE); Protein,Urine Dip NEGATIVE (Negative); Specific Gravity 1.016 (1.005-1.025); Urobilinogen NEGATIVE mg/dL (0-1)
[2018-11-30 04:07] LABS: Mean Corpuscular Hemoglobin 26.4 pg (26-32)
[2018-11-30 04:13] LABS: ALBUMIN 4.8 g/dL (3.5-5.0); ALKALINE PHOSPHATASE 42 U/L (38-126); ANION GAP 16.8 MEQ/L (5-15); BLOOD UREA NITROGEN 14 mg/dL (7-17); CHLORIDE 100 mmol/L (98-107); Calcium 10.6 mg/dL (8.4-10.2); Carbon Dioxide 25 mmol/L (22-30); Creatinine 1 0.62 mg/dL (0.52-1.04); Glucose 99 mg/dL (74-106); Potassium 4.1 mmol/L (3.5-5.1); SGOT/AST 29 U/L (14-36); SGPT/ALT 29 U/L (0-35); SODIUM 138 mmol/L (137-145); Total Protein 9.4 g/dL (6.3-8.2)
[2018-11-30] MEDS ORDERED: TORAdol 30 mg Injection IV ONE (04:53)
[2018-11-30] MEDS ORDERED: TORAdol 30 mg Injection ONE (04:58)
--- NOTE | 2018-11-30 05:31 | ERPHSYRPT ---
- History of Present Illness Historian: patient Exam Limitations: no limitations Patient Subjective Stated Complaint: abdominal pain Triage Nursing Assessment: Patient ambulated back to ED doubled over crying in pain. Patient A+O X 3. Patient's skin flushed, warm and dry. Patient complains of abdominal pain that started earlier in the day and has progressively gotten worse. Patient states the abdominal pain is lower and is constant cramping, but when she moves is sharp and stabbing 10/10. Patient's abdomen round and soft with BS X 4. Physician History: Pt is a 23 y/o female that presented to the ED secondary to abdominal pain. Pt states, that the pain started today and got progressively worse. Pt denies N/V/ D. She denies F/C/S. No dysuria/frequency and urgency. Pt states, that the pain is sharp, and is suprapubic that is colicky in nature. Timing/Duration: today Activities at Onset: none Quality: cramping, sharpness Abdominal Pain Onset Location: epigastric, suprapubic Pain Radiation: epigastric Severity of Pain-Max: moderate Severity of Pain-Current: mild Modifying Factors: Improves With: analgesics Associated Symptoms: denies symptoms Previous symptoms: same symptoms as today Allergies/Adverse Reactions: clarithromycin [From Biaxin] Allergy (Verified 11/30/18 02:56) Rash Hx Tetanus, Diphtheria Vaccination/Date Given: No Hx Influenza Vaccination/Date Given: No Hx Pneumococcal Vaccination/Date Given: No Immunizations Up to Date: Yes - Review of Systems Constitutional: No Fever, No Chills Eyes: No Symptoms Ears, Nose, & Throat: No Symptoms Respiratory: No Cough, No Dyspnea Cardiac: No Chest Pain, No Edema, No Syncope Abdominal/Gastrointestinal: Abdominal Pain, Nausea Genitourinary Symptoms: No Dysuria Musculoskeletal: No Back Pain, No Neck Pain Neurological: No Dizziness, No Focal Weakness, No Sensory Changes - Past Medical History Pertinent Past Medical History: Yes Neurological History: No Pertinent History ENT History: No Pertinent History Cardiac History: No Pertinent History Respiratory History: No Pertinent History Endocrine Medical History: No Pertinent History Musculoskeletal History: Fractures GI Medical History: No Pertinent History History: No Pertinent History Psycho-Social History: No Pertinent History Female Reproductive Disorders: Cervical Cancer Other Medical History: Cervical Dysplasia - Past Surgical History Past Surgical History: Yes Neuro Surgical History: No Pertinent History Cardiac: No Pertinent History Respiratory: No Pertinent History Gastrointestinal: Cholecystectomy, Hernia Repair Genitourinary: No Pertinent History Musculoskeletal: Orthopedic Surgery Female Surgical History: Other - Social History Smoking Status: Current every day smoker How long have you smoked: 1 Exposure to second hand smoke: Yes Drug Use: none Patient Lives Alone: No - Female History Hx Last Menstrual Period: October 21 Hx Now: (unsure) - Nursing Vital Signs Nursing Vital Signs: Initial Vital Signs Temperature 97.6 F 11/30/18 02:57 Pulse Rate 110 H 11/30/18 02:57 Respiratory Rate 18 11/30/18 02:57 Blood Pressure 117/75 11/30/18 02:57 O2 Sat by Pulse Oximetry 96 11/30/18 02:57 Pain Scale Pain Intensity 10 - Physical Exam General Appearance: moderate distress, alert Eye Exam: PERRL/EOMI, eyes nml inspection Ears, Nose, Throat Exam: normal ENT inspection, pharynx normal, moist mucous membranes Neck Exam: normal inspection, non-tender, supple, full range of motion Respiratory Exam: normal breath sounds, lungs clear, No respiratory distress Cardiovascular Exam: regular rate/rhythm, normal heart sounds Gastrointestinal/Abdomen Exam: soft, tenderness Pelvic Exam: not done Back Exam: normal inspection, normal range of motion, No CVA tenderness, No vertebral tenderness Extremity Exam: normal inspection, normal range of motion, pelvis stable Neurologic Exam: alert, oriented x 3, cooperative, normal mood/affect, nml cerebellar function, sensation nml, No motor deficits SpO2: 98 - Course Nursing assessment & vital signs reviewed: Yes - CT Exams Abdomen/Pelvis CT Interpretation: Tele-radiologist Report (negative. No nephrolithiasis, no town marshal abnormality, no pathology seen.) Ordered Tests: Active Orders 24 hr Category Date Time Status ABDOMEN AND PELVIS W/0 CONTRAS [CT] Stat Exams 11/30/18 03:31 Taken CBC W DIFF Stat Lab 11/30/18 04:03 Completed CMP Stat Lab 11/30/18 04:03 Completed HCG,QUALITATIVE URINE Stat Lab 11/30/18 04:03 Completed UA W/RFX UR CULTURE Stat Lab 11/30/18 04:03 Completed Medication Summary Discontinued Medications Generic Name Dose Route Start Last Admin Trade Name Freq PRN Reason Stop Dose Admin Sodium Chloride 1,000 mls @ 999 mls/hr 11/30/18 03:30 11/30/18 05:24 Sodium Chloride 0.9% 1000 Ml IV 11/30/18 04:30 Infused .Q1H1M STA Infusion Sodium Chloride Confirm 11/30/18 03:35 Sodium Chloride 0.9% 1000 Ml Administered 11/30/18 03:36 Dose 1,000 mls @ ud .ROUTE .STK-MED ONE Ketorolac Tromethamine 30 mg 11/30/18 04:53 11/30/18 05:00 Toradol 30 Mg Injection IV 11/30/18 04:54 30 mg STAT ONE Administration Ketorolac Tromethamine Confirm 11/30/18 04:58 Toradol 30 Mg Injection Administered 11/30/18 04:59 Dose 30 mg .ROUTE .STK-MED ONE Morphine Sulfate 2 mg 11/30/18 03:30 11/30/18 03:46 Morphine Sulfate 2 Mg Inj IV 11/30/18 03:31 2 mg STAT ONE Administration Morphine Sulfate Confirm 11/30/18 03:35 Morphine Sulfate 2 Mg Inj Administered 11/30/18 03:36 Dose 2 mg .ROUTE .STK-MED ONE Ondansetron HCl 4 mg 11/30/18 03:30 11/30/18 03:46 Zofran 4 Mg/2 Ml Vial IV 11/30/18 03:31 4 mg STAT ONE Administration Ondansetron HCl Confirm 11/30/18 03:35 Zofran 4 Mg/2 Ml Vial Administered 11/30/18 03:36 Dose 4 mg .ROUTE .STK-MED ONE Pantoprazole Sodium 40 mg 11/30/18 03:30 11/30/18 03:46 Protonix 40 Mg Iv IV 11/30/18 03:31 40 mg STAT ONE Administration Pantoprazole Sodium Confirm 11/30/18 03:35 Protonix 40 Mg Iv Administered 11/30/18 03:36 Dose 40 mg IV .STK-MED ONE Lab/Rad Data: Laboratory Result Diagrams 11/30/18 04:03 11/30/18 04:03 Laboratory Results 11/30/18 11/30/18 11/30/18 Range/Units 04:03 04:03 04:03 WBC (4.0-10.5) K/mm3 RBC (4.1-5.4) M/mm3 Hgb (12.0-16.0) gm/dl Hct (35-47) % MCV (78-100) fl MCH (26-32) pg MCHC (32-36) g/dl RDW (11.5-14.0) % Plt Count (150-450) K/mm3 MPV (6-9.5) fl Gran % (36.0-66.0) % Eos # (Auto) (0-0.5) Absolute Lymphs (auto) (1.0-4.6) Absolute Monos (auto) (0.0-1.3) Lymphocytes % (24.0-44.0) % Monocytes % (0.0-12.0) % Eosinophils % (0.00-5.0) % Basophils % (0.0-0.4) % Absolute Granulocytes (1.4-6.9) Basophils # (0-0.4) Sodium 138 (137-145) mmol/L Potassium 4.1 (3.5-5.1) mmol/L Chloride 100 (98-107) mmol/L Carbon Dioxide 25 (22-30) mmol/L Anion Gap 16.8 H (5-15) MEQ/L BUN 14 (7-17) mg/dL Creatinine 0.62 (0.52-1.04) mg/dL Estimated GFR > 60.0 ML/MIN Glucose 99 (74-106) mg/dL Calcium 10.6 H (8.4-10.2) mg/dL Total Bilirubin 0.30 (0.2-1.3) mg/dL AST 29 (14-36) U/L ALT 29 (0-35) U/L Alkaline Phosphatase 42 (38-126) U/L Serum Total Protein 9.4 H (6.3-8.2) g/dL Albumin 4.8 (3.5-5.0) g/dL Urine Color YELLOW (YELLOW) Urine Appearance CLEAR (CLEAR) Urine pH 6.0 (5-6) Ur Specific Perry 1.016 (1.005-1.025) Urine Protein NEGATIVE (Negative) Urine Ketones NEGATIVE (NEGATIVE) Urine Blood NEGATIVE (0-5) Kody/ul Urine Nitrite NEGATIVE (NEGATIVE) Urine Bilirubin NEGATIVE (NEGATIVE) Urine Urobilinogen NEGATIVE (0-1) mg/dL Ur Leukocyte Esterase NEGATIVE (NEGATIVE) Urine WBC (Auto) NONE (0-5) /HPF Urine RBC (Auto) NONE (0-2) /HPF U Epithel Cells (Auto) RARE (FEW) /HPF Urine Bacteria (Auto) NONE (NEGATIVE) /HPF Urine Culture Reflexed NO (NO) Urine Glucose NEGATIVE (NEGATIVE) mg/dL Urine HCG, Qual NEGATIVE (Negative) 11/30/18 Range/Units 04:03 WBC 7.9 (4.0-10.5) K/mm3 RBC 5.70 H (4.1-5.4) M/mm3 Hgb 15.1 (12.0-16.0) gm/dl Hct 45.1 (35-47) % MCV 79.1 (78-100) fl MCH 26.4 (26-32) pg MCHC 33.5 (32-36) g/dl RDW 15.3 H (11.5-14.0) % Plt Count 306 (150-450) K/mm3 MPV 10.9 H (6-9.5) fl Gran % 73.2 H (36.0-66.0) % Eos # (Auto) 0.10 (0-0.5) Absolute Lymphs (auto) 1.63 (1.0-4.6) Absolute Monos (auto) 0.37 (0.0-1.3) Lymphocytes % 20.7 L (24.0-44.0) % Monocytes % 4.7 (0.0-12.0) % Eosinophils % 1.3 (0.00-5.0) % Basophils % 0.1 (0.0-0.4) % Absolute Granulocytes 5.76 (1.4-6.9) Basophils # 0.01 (0-0.4) Sodium (137-145) mmol/L Potassium (3.5-5.1) mmol/L Chloride (98-107) mmol/L Carbon Dioxide (22-30) mmol/L Anion Gap (5-15) MEQ/L BUN (7-17) mg/dL Creatinine (0.52-1.04) mg/dL Estimated GFR ML/MIN Glucose (74-106) mg/dL Calcium (8.4-10.2) mg/dL Total Bilirubin (0.2-1.3) mg/dL AST (14-36) U/L ALT (0-35) U/L Alkaline Phosphatase (38-126) U/L Serum Total Protein (6.3-8.2) g/dL Albumin (3.5-5.0) g/dL Urine Color (YELLOW) Urine Appearance (CLEAR) Urine pH (5-6) Ur Specific Perry (1.005-1.025) Urine Protein (Negative) Urine Ketones (NEGATIVE) Urine Blood (0-5) Kody/ul Urine Nitrite (NEGATIVE) Urine Bilirubin (NEGATIVE) Urine Urobilinogen (0-1) mg/dL Ur Leukocyte Esterase (NEGATIVE) Urine WBC (Auto) (0-5) /HPF Urine RBC (Auto) (0-2) /HPF U Epithel Cells (Auto) (FEW) /HPF Urine Bacteria (Auto) (NEGATIVE) /HPF Urine Culture Reflexed (NO) Urine Glucose (NEGATIVE) mg/dL Urine HCG, Qual (Negative) - Progress Progress: improved Progress Note: 11/30/18 05:31 Pt was seen and examined. All her lab work were normal, including UA and CT of abdomen and pelvis. Pt did get Morphine 2mg IV and Toradol 30mg IV. She got Zofran and IVF. Protonix was ordered as well. Pt feels somewhat better. She should f/u with her PCP, and GI. Discussed with : Denilson Will see patient in: office Counseled pt/family regarding: need for follow-up - Departure Departure Disposition: Home Clinical Impression: Abdominal pain Condition: Stable Critical Care Time: No Referrals: CHUCK ABEL MD [Primary Care Provider] - Additional Instructions: F/U with PCP and get referral for GI for more extensive work up.
--- NOTE | 2018-11-30 09:05 | XRAY ---
Indication: Abdominal pain, nausea, and diarrhea. Multiple contiguous axial images obtained through the abdomen and pelvis without contrast as ordered. Comparison: April 23, 2017. Lung bases demonstrate stable left lower lobe calcified granulomas. No infiltrate or effusion. Heart is not enlarged. Noncontrasted stomach and bowel loops appear nonobstructed. Normal appendix. Again previous cholecystectomy. No free fluid/air. Remaining liver, pancreas, spleen, adrenal glands, kidneys, ureters, bladder, uterus, and aorta appear unremarkable for noncontrast exam. Osseous structures intact. No ventral or inguinal hernias. Impression: 1. Stable left lower lobe calcified granulomas. 2. Remaining CT abdomen/pelvis without contrast exam is negative Comment: Preliminary interpretation was made by [facility]. No discrepancy. CTDI 23.68
== END 2018-11-30 05:45 | disposition home or self-care (01) ==
LOC: ED 02:18
DX: R10.13 Epigastric pain (principal); R10.9 Unspecified abdominal pain
CPT/HCPCS: 36415; 74176; 80053; 81001; 84703; 85025; 96360; 96374; 96375; 99284; J1885; J2270; J2405